=== PATIENT | female | born 1990 | race Caucasian/White ===

== ENCOUNTER 2023-05-26 10:48 | Outpatient (OUT) | payer OTHER, SELFPAY ==
--- NOTE | 2023-05-26 10:49 | US_ITS ---
[address] [address] Patient Name: SATHYA SAUNDERS MRN: [id number] date: 1990 Sex: F Assigned Patient Location: US Current Patient Location: Accession/Order Number: [id number] Exam Date: 05/26/2023 10:50 Report Date: 05/29/2023 15:33 At the request of: GUERDA LEMA Procedure: US OB transvaginal EXAMINATION: US OB transvaginal HISTORY: Missed Menses COMPARISON: No relevant comparison available. FINDINGS: GESTATIONAL SAC: Present and normal appearing. YOLK SAC: Absent. POLE: Present and normal appearing. CARDIAC: 163 bpm UTERUS: Normal size and appearance. OVARIES: Right: Normal. Left: Normal. CERVIX: 3.6 cm in length and closed. CUL-DE-SAC: Normal. OTHER: None. AGE BY LMP: Unknown LMP ZAFAR BY LMP: AGE BY US CRL: 12 weeks 6 days ZAFAR BY US CRL: 12/02/2023 US/US OB transvaginal IMPRESSION: 1. Single live intrauterine 12 weeks 6 days by today's ultrasound. Electronically authenticated by: ENOCH HORAN Date: 05/29/2023 15:33
== END 2023-05-26 10:49 | disposition home or self-care (01) ==
PROVIDERS: Visit Provider Obstetrics & Gynecology
DX: Z34.91 Encounter for supervision of normal pregnancy, unspecified, first trimester (principal); Z3A.12 12 weeks gestation of pregnancy
CPT/HCPCS: 76817

== ENCOUNTER 2023-06-20 20:16 | Outpatient (REF) | payer OTHER, SELFPAY ==
[2023-06-24 12:08] LABS: Age Gdln ACOG Testing Note (.); HPV Aptima Negative (Negative); IGP, Aptima HPV, rfx 16/18,45 Note (.)
== END 2023-06-20 20:17 | disposition home or self-care (01) ==
LOC: LAB 20:16
PROVIDERS: Visit Provider Obstetrics & Gynecology
DX: Z12.4 Encounter for screening for malignant neoplasm of cervix (principal)
CPT/HCPCS: G0145

== ENCOUNTER 2023-07-25 13:02 | Outpatient (OUT) | payer OTHER, SELFPAY ==
--- NOTE | 2023-07-25 13:04 | US_ITS ---
[address] [address] Patient Name: SATHYA SAUNDERS MRN: [id number] date: 1990 Sex: F Assigned Patient Location: US Current Patient Location: Accession/Order Number: [id number] Exam Date: 07/25/2023 13:05 Report Date: 07/25/2023 15:14 At the request of: GUERDA LEMA Procedure: US OB anatomy EXAMINATION: US OB anatomy HISTORY: ANAOTMY COMPARISON: No relevant comparison available. TECHNIQUE: Transabdominal sonographic examination was performed for obstetrical and evaluation. FINDINGS: Number: 1 Heart Rate: 155.0 bpm H.B. /min Amniotic Fluid Volume: Subjectively normal position: Cephalic presentation, longitudinal lie Placental Location: Anterior. Placental edge 2.6 cm from the internal os. Grade 0 Cervix Length: 3.5 cm , closed Normal anatomy: Lateral ventricles, cerebellum, posterior fossa, orbits, four-chamber heart, diaphragm, stomach, kidneys, abdominal cord insertion, bladder, umbilical arteries, three-vessel cord, spine, extremities Nonvisualization: Nose, lips, RVOT, LVOT BIOMETRY: BPD: 4.6 cm 19 weeks 6 days F 15% HC: 17.7 cm 20 weeks 1 days, 15% AC: 15.5 cm 20 weeks 5 days, 38% FL: 3.5 cm 21 weeks 0 days, 44% EFW:372.5 grams; 13 ounces, 37% FL/AC: 22.3 FL/BPD: 75.4 HC/AC: 1.1 GESTATIONAL AGE: Age by EDC: 20 weeks 6 days ZAFAR by EDC: 12/06/2023 Age by current US: 20 weeks 3 days ZAFAR by current US: 12/09/2023 US/US OB anatomy IMPRESSION: Nonvisualization of the nose, lips, RVOT, LVOT Low lying placenta *Reference: [employer] Practice Guideline for the performance of Obstetric Ultrasound Examinations, July 09, 2007. Electronically authenticated by: PURNIMA NEGRON Date: 07/25/2023 15:14
--- NOTE | 2023-07-25 13:04 | US_ITS ---
[address] [address] Patient Name: SATHYA SAUNDERS MRN: [id number] date: 1990 Sex: F Assigned Patient Location: US Current Patient Location: Accession/Order Number: [id number] Exam Date: 07/25/2023 13:05 Report Date: 07/25/2023 15:14 At the request of: GUERDA LEMA Procedure: US OB cervical length EXAMINATION: US OB anatomy HISTORY: ANAOTMY COMPARISON: No relevant comparison available. TECHNIQUE: Transabdominal sonographic examination was performed for obstetrical and evaluation. FINDINGS: Number: 1 Heart Rate: 155.0 bpm H.B. /min Amniotic Fluid Volume: Subjectively normal position: Cephalic presentation, longitudinal lie Placental Location: Anterior. Placental edge 2.6 cm from the internal os. Grade 0 Cervix Length: 3.5 cm , closed Normal anatomy: Lateral ventricles, cerebellum, posterior fossa, orbits, four-chamber heart, diaphragm, stomach, kidneys, abdominal cord insertion, bladder, umbilical arteries, three-vessel cord, spine, extremities Nonvisualization: Nose, lips, RVOT, LVOT BIOMETRY: BPD: 4.6 cm 19 weeks 6 days F 15% HC: 17.7 cm 20 weeks 1 days, 15% AC: 15.5 cm 20 weeks 5 days, 38% FL: 3.5 cm 21 weeks 0 days, 44% EFW:372.5 grams; 13 ounces, 37% FL/AC: 22.3 FL/BPD: 75.4 HC/AC: 1.1 GESTATIONAL AGE: Age by EDC: 20 weeks 6 days ZAFAR by EDC: 12/06/2023 Age by current US: 20 weeks 3 days ZAFAR by current US: 12/09/2023 US/US OB cervical length IMPRESSION: Nonvisualization of the nose, lips, RVOT, LVOT Low lying placenta *Reference: [employer] Practice Guideline for the performance of Obstetric Ultrasound Examinations, July 09, 2007. Electronically authenticated by: PURNIMA NEGRON Date: 07/25/2023 15:14
== END 2023-07-25 13:03 | disposition home or self-care (01) ==
LOC: US 13:02
PROVIDERS: Visit Provider Obstetrics & Gynecology
DX: O44.42 Low lying placenta NOS or without hemorrhage, second trimester (principal); Z3A.20 20 weeks gestation of pregnancy
CPT/HCPCS: 76805; 76817

== ENCOUNTER 2023-08-18 08:34 | Outpatient (OUT) | payer OTHER, SELFPAY ==
[2023-08-18 10:11] LABS: Glucose 1 Hour 129 mg/dL
[2023-08-18 10:18] LABS: Basophils Percent Auto 0.3 % (0.2-2.0); Eosinophils Absolute Auto 0.1 10^3/uL (0.0-0.7); Eosinophils Percent Auto 1.2 % (0.9-7.0); Hematocrit 37.1 % (36.0-48.0); Hemoglobin 12.2 g/dL (12.0-16.0); Immature Granulocytes Abs Auto 0.09 10^3/uL (0.00-0.03); Immature Granulocytes Pct Auto 0.9 % (0.0-0.5); Lymphocytes Absolute Auto 1.3 10^3/uL (1.2-3.8); Lymphocytes Percent Auto 12.8 % (20.5-60.0); Mean Corpuscular HGB Conc 32.9 g/dL (29.9-35.2); Mean Corpuscular Hemoglobin 29.4 pg (26.7-34.0); Mean Corpuscular Volume 89.4 fL (81.0-99.0); Mean Platelet Volume 11.3 fL (9.5-13.5); Monocytes Absolute Auto 0.6 10^3/uL (0.3-0.8); Monocytes Percent Auto 5.8 % (1.7-12.0); Neutrophils Absolute Auto 7.9 10^3/uL (1.4-6.5); Platelet Count 208 10^3/uL (150-450); Red Blood Count 4.15 10^6/uL (4.20-5.40); Red Cell Distribution Width 13.2 % (11.0-15.0)
== END 2023-08-18 08:35 | disposition home or self-care (01) ==
LOC: LAB 08:34
PROVIDERS: Visit Provider Obstetrics & Gynecology
DX: Z34.92 Encounter for supervision of normal pregnancy, unspecified, second trimester (principal)
CPT/HCPCS: 36415; 82950; 85025

== ENCOUNTER 2023-08-18 13:39 | Observation (INO) | payer OTHER, SELFPAY ==
[2023-08-18] VITALS (22 sets, daily range): BP systolic 150–190; BP diastolic 76–104; PULSE 72–89; TEMP 35.9–37
--- NOTE | 2023-08-18 14:41 | PC.NURSE ---
1345- Patient to unit with complaint of swelling within the last week and a half. States gets migraines prior to and has had 1 migraine this past week as well as a couple headaches - per patient gets auras with migraines. Patient denies taking medication for relief and headaches resolve on own. Swelling assessed and noted as non-pitting in BLE. Patient denies vision changes, headache, or epigastric pain at this time. DTRs assessed as +1 uppers and +2 lowers. History obtained from patient and denies any complications in . States she was diagnosed with hypothyroidism by fertility doctor and currently is taking Synthroid 75 mcg daily for treatment. 1420- Dr. Murphy called and notified of patient assessment and blood pressures obtained. Dr. Murphy orders to obtain P/C ratio of urine, CMP, and CBC. Keep patient bed rest and reassess blood pressure in an hour with manual cuff. 1425- Patient educated on plan of care. Denies CBC d/t having this drawn this morning here at the hospital. Okay with CMP and urine to be obtained.
[2023-08-18 15:07] LABS: Alanine Aminotransferase 19 U/L (14-59); Albumin Globulin Ratio 0.8; Albumin Level 2.8 g/dL (3.4-5.0); Alkaline Phosphatase 55 U/L (46-116); Anion Gap 11.2; Aspartate Amino Transferase 12 U/L (15-37); BUN Creatinine Ratio 8.8; Bilirubin Total 0.3 mg/dL (0.2-1.0); Calcium 8.8 mg/dL (8.5-10.1); Carbon Dioxide 28.2 mmol/L (21.0-32.0); Chloride 104 mmol/L (98-107); Estimated GFR (African America >60 (>=60); Estimated GFR (Non-African Ame >60 (>=60); Globulin 3.5 g/dL; Glucose 82 mg/dL (74-106); Potassium 3.4 mmol/L (3.5-5.1); Sodium 140 mmol/L (136-145); Total Protein 6.3 g/dL (6.4-8.2)
[2023-08-18 15:15] LABS: Creatinine Urine Random 18.19 mg/dL (20.00-300.00); Protein Creatinine Ratio Urine 0.33; Total Protein Urine Random <6.0 mg/dL (<=11.9)
[2023-08-18] MEDS: LABETALOL HCL 100 MG TABLET PO (15:42)
[2023-08-18] MEDS: HYDRALAZINE HCL 10 MG TABLET PO (17:43)
[2023-08-18] MEDS: LABETALOL HCL 100 MG/20 ML MDV IVP (18:52)
[2023-08-18] MEDS: LACTATED RINGER'S SOLUTION 1,000 ML 125 ML IV (18:53)
[2023-08-18] MEDS: LABETALOL HCL 100 MG/20 ML MDV 20 MG IVP (19:21)
[2023-08-18] MEDS: MAGNESIUM SULFATE IN WATER 4 GM/100 ML PIGGYBACK IV (19:50)
[2023-08-18] MEDS: 0.9 % SODIUM CHLORIDE 1,000 ML 75 ML IV (19:50)
[2023-08-18] MEDS: MAGNESIUM SULFATE IN WATER 40 GM/1,000 ML IV.SOLN IV (20:13)
[2023-08-18] MEDS: BETAMETHASONE ACE/BETAMETHASONE SOD PHOS 30 MG/5 ML 12 MG IM (20:35)
[2023-08-18] MEDS: NIFEdipine 30 MG TAB.ER.24 60 MG PO (20:40)
--- NOTE | 2023-08-19 11:57 | PM.OBPN ---
OB - PN: Subj Subjective Interval history: PATIENT PRESENTED TO [facility] WITH COMPLAINT OF HEADACHE, (NOT WORSE HEADACHE OF HER LIFE) AND NEW ONSET ANKLE EDEMA. BLOOD PRESSURE ON TRIAGE HIGH 190/100'S DENIED VISUAL CHANGES, CHEST PAIN, RUQ PAIN, OR DIZZINESS. UNABLE TO OBTAIN RECORDS FROM DR. LEMA'S OFFICE. GOOD HISTORIAN. DENIES ANY MEDICAL PROBLEM EXCEPT HYPOTHYROIDISM WELL CONTROLLED WITH MEDICATION. 32 YEARS OLD. . 25 WEEKS 4 DAYS. BABY MOVING. MEMBRANES INTACT. NO CONTRACTIONS. NO BLEEDING Exam Constitutional Vital Signs, click to edit/add: Last Vital Signs Temp 98.4 F 08/18/23 20:48 Pulse 78 08/18/23 20:46 BP 162/77 H 08/18/23 20:46 Documenting provider has reviewed patient's vital signs: yes Common normals: no apparent distress, oriented x3, healthy appearing and alert General appearance: cooperative and comfortable HENMT Common normals: normocephalic and head/scalp atraumatic Eye Pupil: PERRL and accommodation reflex normal Neck & C-Spine Common normals: full ROM Respiratory Common normals: normal respiratory effort Cardio Common normals: regular rate and regular rhythm GI Common normals: Normal to inspection, nondistended, normoactive bowel sounds present Common normals: no CVA tenderness Extremity Common normals: normal to inspection, full ROM and no calf tenderness Other: NEW ONSET DEPENDENT EDEMA, NON PITTING, REFLEXES ONE PLUS, NO CLONUS Neuro Common normals: CN's II-XII intact bilaterally, moves all extremities, no focal motor deficits and no sensory deficits noted Psych Common normals: mental status grossly normal, thought process normal, cooperative and affect normal Results Labs Labs: BMP 08/18/23 14:50 Sodium 140 Potassium 3.4 L Chloride 104 Carbon Dioxide 28.2 BUN 5.0 L Creatinine 0.57 Glucose 82 Calcium 8.8 Liver Function 08/18/23 Range/Units 14:50 Total Bilirubin 0.3 (0.2-1.0) mg/dL AST 12 L (15-37) U/L ALT 19 (14-59) U/L Alkaline Phosphatase 55 (46-116) U/L Albumin 2.8 L (3.4-5.0) g/dL Additional Findings Additional findings: LFT'S NORMAL, PLATELETS NORMAL, NOT HEMOCONCENTRATED, P:C RATION GREATER THAN 0.3, BLOOD PRESSURES HIGH RANGING FROM 160'S TO 190'S OVER 80'S TO 100'S. HAVE ADMINISTERED LABETALOL TWO DOSES 100 MG TAB PO, HYDRALAZINE 10 MG PO, TRANDATE IV 5 MG THEN 20 MG THEN 40 MG. BLOOD PRESSURE REFRACTORY TO ANTIHYPERTENSIOVE. FHT CAT I AND NO CONTRACTIONS. STARTED MAGNESIUM FOR SEIZURE PROHYLAXIS WITH 4 GRAM BOLUS FOLLOWED BY 2 GRAMS PER HOUR DRIP. CALLED [facility] IN [place] AND DISCUSSED CASE WITH HIM. ADVISED TO GIVE NIFEDIPINE 60 MG XL BY MOUTH AND TRANSPORT BY AIR TO [place] FOR FURTHER ASSESSMENT AND CARE. THIS DECISION BASED ON POSSIBILITY OF DELIVERY FOR PREECLAMPSIA WITH SEVERE FEATURES RERFRACTORY TO ANTIHYPERTENSIVES. ONE DOSE OF BETAMETHASONE GIVEN IV. EXPLAINED THE PROBABLE CAUSE OF HYPERTENSION AND REASON PATIENT NEEDED TO BE TRANSFERRED TO A FACILITY WHICH HAS A NICU INCASE THE BABY NEEDS TO BE DELIVERED EARLY FOR MATERNAL INDICATIONS. EXPLAINED PATIENT WOULD BE TRANSPORTED BY AIR TO [facility] IN [place]. WOULD TRAVEL THERE IN CAR. THE APPROPRIATE PAPER WORK FOR THANSFER TO A TERTIARY CARE FACILITY WAS COMPLETED AND THE CONSENT FORM WAS SIGNED BY PATIENT. NURSES PROVIDED REPORT TO THE [facility] AT [facility]. THE FLIGHT TEAM ARRIVED AND SECURED THE PATIENT FOR TRANSPORT WITHOUT COMPLICATION. THEY WERE FULLY APPRAISED OF MEDICAL CONDITION AND INTERVENTIONS GIVEN THUS FAR. ALL QUESTIONS FROM PATIENT AND HER WERE ANSWERED WITH STATED UNDERSTANDING. OB - PN: A/P Assessment and Plan (1) Pre-eclampsia, severe: Assessment and Plan: CLINICALLY STABLE BUT HYPERTENSION REFRACTORY TO LABETALOL PO AND IV. ALSO REFRACTORY TO HYDRALAZINE. MAGNESIUM STARTED SEIZURE PROPHYLAXIS. PER DIRECTION OF [facility] AT [facility] NIFEDIPINE 60 MG XR GIVEN AND PATIENT TRANSPORTED BY AIR TO [facility] WITH NICU IN THE EVENT THAT DELIVERY BE NEEDED FOR MATERNAL INDICATIONS. FIRST DOSE OF BETAMETHASONE GIVEN PRIOR TO DEPARTURE. Plan TRANSPORT PATIENT WITH PREECLAMPSIA WITH SEVERE FEATURE AT 25 WEEKS AND 4 DAYS TO TERTIARY CARE FACILITY: [facility], BY [facility] [place] DOES NOT HAVE A NICU SHOULD THIS PATIENT REQUIRE DELIVERY FOR MATERNAL INDICATIONS. Time Spent with Patient Time: Total time spent is greater than 50% in coordination of care (as documented) at patient's floor/unit and/or counseling patient: Total time spent with greater than 50% in coordination of care (as documented) at patient's floor/unit and/or counseling patient: greater than 35 minutes
== END 2023-08-18 21:15 | disposition short-term general hospital (02) ==
PROVIDERS: Admitting Provider Obstetrics & Gynecology; Visit Provider Obstetrics & Gynecology
DX: O14.12 Severe pre-eclampsia, second trimester (principal); Z3A.25 25 weeks gestation of pregnancy
CPT/HCPCS: 36415; 59025; 80053; 82570; 82950; 84156; 85025; 96372; 96374; 96375; G0378; G0379; J0702

== ENCOUNTER 2024-10-31 18:51 | Outpatient (REF) | payer OTHER, BC, SELFPAY ==
--- OUTSIDE RECORDS SUMMARY | 2024-10-31 18:57 | XMS_ITS | CCD ---
Author Organization [facility] Care Team Providers Care Supervisor Grinding Name Role Phone PEPPER CONNORS Attending Unavailabl e Unavailable Primary Care Provider Unavailabl e No, Physician Primary Care Provider Unavailabl e ULYSSES, EDYTA LUNDBERG Primary Care Unavailab EDYTA Green Admitting Unavailab katie Villalba MD, Edyta Lundberg Primary Care Provider Ulysses MUHAMMAD, Edyta Lundberg Primary Care Provider NANCY CISSE Attending Unavail able ULYSSES, EDYTA LUNDBERG Primary Care Unavailab katie VILLALBA, EDYTA LUNDBERG Primary Care Unavailab NANCY Cardenas Attending Unavail able PROVIDER, UNKNOWN Attending Unavailable PROVIDER, UNKNOWN Admitting Unavailable Unavailable Primary Care Provider Unavailabl e Juan Antonio LEMA R Attending Unavailable PITA, Juan Antonio R Admitting Unavailable Juan Antonio LEMA R Attending Unavailable PITA, Juan Antonio R Admitting Unavailable Kun Uribe Attending Unavailable STEPHANIE MENDOZA Referring Unavailable EDGARIN, STEPHANIE Lao Referring Unavailable KYAW RAMIREZ Referring Unavailable BEL MCKINNON Referring Unavailable TRAUTWEINSTEPHANIE Referring Unavailable TRAUTWEINSTEPHANIE Referring Unavailable REGUEYRAARNEL Referring Unavailable Medications Current Medications Medication Drug Class(es) Dates Sig (Normalized) Sig (Original) docusate sodium 100 mg oral capsule (20 sources) Start: 09-06-2023 take 1 capsule by mouth in the morning, then take 1 capsule by mouth at bedtime docusate sodium (COLACE) 100 mg capsule Take 1 capsule (100 mg total) by mouth in the morning and 1 capsule (100 mg total) before bedtime. 60 capsule 0 09/06/2023 Active ferrous sulfate 325 mg oral tablet (20 sources) Start: 09-06-2023 take 1 tablet by mouth in the morning, then take 1 tablet by mouth at mealtime ferrous sulfate 325 (65 FE) mg tablet Take 1 tablet (325 mg total) by mouth in the morning and 1 tablet (325 mg total) in the evening. Take with meals. 60 tablet 1 09/06/2023 Active hydrALAZINE hydrochloride 25 mg oral tablet (20 sources) Arteriolar Vasodilator Start: 09-28-2023 take 1 tablet by mouth every eight hours hydrALAZINE (APRESOLINE) 25 mg tablet Take 1 tablet (25 mg total) by mouth every 8 (eight) hours. 120 tablet 0 09/28/2023 Active ibuprofen 800 mg oral tablet (20 sources) Nonsteroidal Anti-inflammatory Drug Start: 09-06-2023 take 1 tablet by mouth every eight hours ibuprofen (MOTRIN) 800 mg tablet Take 1 tablet (800 mg total) by mouth every 8 (eight) hours. 60 tablet 0 09/06/2023 Active levothyroxine sodium 0.075 mg oral tablet (20 sources) l-Thyroxine Start: 09-08-2023 take 1 tablet by mouth in the morning levothyroxine (SYNTHROID, LEVOTHROID) 75 MCG tablet Indications: Hypothyroidism, unspecified type Take 1 tablet (75 mcg total) by mouth in the morning. 30 tablet 2 09/08/2023 Active NIFEdipine 60 mg osmotic 24 hr extended release oral tablet (20 sources) Dihydropyridine Calcium Channel May Start: 09-28-2023 take 1 tablet by mouth every hour NIFEdipine XL (PROCARDIA XL) 60 mg 24 hr tablet Take 1 tablet (60 mg total) by mouth every 12 (twelve) hours. 60 tablet 0 09/28/2023 Active no115/iron/folic acid ( 19 ORAL) (20 sources) no115/iron/folic acid ( 19 ORAL) Take by mouth. 0 Active SUMAtriptan 50 mg oral tablet (3 sources) Serotonin-1b and Serotonin-1d Receptor Agonist take 1 tablet by mouth every two hours as needed SUMAtriptan (IMITREX) 50 MG tablet Take 1 (one) tablet (50 mg total) by mouth every 2 (two) hours as needed for migraine Max of 200 mg in 24hrs . 0 Active Completed/Discontinued Medications Medication Drug Class(es) Dates Sig (Normalized) Sig (Original) levonorgestrel 0.902579 mg/hr intrauterine system (2 sources) Progestin, Progestin-containi ng Intrauterine Device Start: 10-13-2023 End: 10-13-2023 levonorgestreL (KYLEENA) 17.5 mcg/24 hrs (5 yrs) 19.5 mg IUD 1 each Start: 10-13-2023 End: 10-13-2023 levonorgestreL (KYLEENA) 17. 5 mcg/24 hrs (5 yrs) 19.5 mg IUD 1 each Problems Active Problems Problem Classification Problem Date Documented Da te Episodic/Chronic Contraceptive and procreative management (3 sources) Patient encounter status; Translations: [Encounter for other general counseling and advice on procreation] Episodic Hypertension complicating ; childbirth and the puerperium (2 sources) Hypertensive disorder; Translations: [Unspecified maternal hypertension, complicating the puerperium] Onset: 10-06-2023 10-06-2023 Chronic Other female genital disorders (1 source) Abnormal uterine bleeding; Translations: [Abnormal uterine and vaginal bleeding, unspecified] Chronic Other nutritional; endocrine; and metabolic disorders (1 source) Body mass index 30+ - obesity; Translations: [Body mass index (BMI) 37.0-37.9, adult] Chronic Other nutritional; endocrine; and metabolic disorders (1 source) Obesity; Translations: [Other obesity due to excess calories] Chronic Other and delivery including normal (1 source) care status; Translations: [Encounter for routine follow-up] 10-13-2023 Episodic Other screening for suspected conditions (not mental disorders or infectious disease) (1 source) Cancer cervix screening status; Translations: [Encounter for screening for malignant neoplasm of cervix] Episodic Residual codes; unclassified (1 source) Family history of carrier of genetic disease; Translations: [Family history of carrier of genetic disease] Onset: 04-02-2024 Episodic Thyroid disorders (1 source) Hypothyroidism, unspecified; Translations: [Hypothyroidism, unspecified] Onset: 09-28-2023 Chronic Unclassified (1 source) Procedure Onset: 10-13-2023 Past or Other Problems Problem Classification Problem Date Documented Da te Episodic/Chronic Hypertension complicating ; childbirth and the puerperium (20 sources) Severe pre-eclampsia; Translations: [Severe pre-eclampsia, unspecified trimester] Onset: 08-18-2023 08-18-2023 Episodic Unclassified (1 source) Annual Exam Onset: 09-07-2022 Results Test Name Value Interpretation Reference Range Facility XR Ankle 3+ Views Righton XR Ankle 3+ Views Right Exam Date/Time: 05/09/2024 17:33 EDT Reason for Exam: Pain Report IMPRESSION: NO ACUTE OSSEOUS ABNORMALITY. EXAM: XR Ankle 3+ Views Right COMPARISON: None available HISTORY: Ankle pain FINDINGS: AP, lateral and oblique views of the ankle were obtained. FINDINGS: No acute fracture or dislocation. Ankle mortise is within normal limits. Talar dome is intact. Small plantar calcaneal enthesophyte. Soft tissue edema of the ankle. Ordering Provider: Reese Kenny FINAL REPORT Dictated: 05/10/2024 8:26 am Gurwinder Maldonado DO Signed (Electronic Signature): 05/10/2024 8:26 am Signed by: Gurwinder Maldonado DO Transcribed by: WALE Technologist: QUINTON Technical Comments Radiation Dose: Ka,r in mGy = na DAP = na Normal [facility] ED Clinical Summaryon 2023 ED Clinical Summary ED Clinical Summary [place] [id number] ED Clinical Summary Person Information Name: SUMMER SAUNDERS Wendi/[facility] Age: 33 Years : 1990 Sex: Female Language: Serbian PCP: Tosha Brown CNP Marital Status: Phone: [phone] Visit Id: Visit Reason: Ankle injury - Minor; ANKLE PAIN/SWELLING Speciality: Acuity: 4 Enc Type: Emergency Med Service: Emergency Arrival: 05/09/2024 16:44:34 Discharge: 05/09/2024 18:23:08 LOS: 000 01:39 Checkin: 05/09/2024 16:44:34 Checkout: 05/09/2024 18:23:08 Dispo Type: Home (Routine DC) EVENTS: Event Name Event Status Request Date/Time Start Date/Time Complete Date/Time Arrive Complete 05/09/2024 16:44:34 05/09/2024 16:44:34 05/09/2024 16:44:34 Document Home Meds Request 05/09/2024 16:44:34 Triage Complete 05/09/2024 16:44:34 05/09/2024 17:20:38 05/09/2024 17:20:38 Registration Complete 05/09/2024 16:55:21 05/09/2024 16:55:21 05/09/2024 16:55:21 Reg Complete Request 05/09/2024 16:55:21 Reg Bed Request Complete 05/09/2024 16:55:21 05/09/2024 16:55:21 05/09/2024 16:55:21 Bed Assign Complete 05/09/2024 17:16:40 05/09/2024 17:16:40 05/09/2024 17:16:40 Dr Exam Complete 05/09/2024 17:16:40 05/09/2024 17:43:41 05/09/2024 17:43:41 RN Exam Complete 05/09/2024 17:16:40 05/09/2024 17:47:38 05/09/2024 17:47:38 X-Ray Complete 05/09/2024 17:22:44 05/09/2024 17:24:00 05/09/2024 17:33:23 Wet Read Request 05/09/2024 17:33:23 Registration Request 05/09/2024 17:43:41 Dr Exam Complete 05/09/2024 17:51:13 05/09/2024 17:51:13 05/09/2024 17:51:13 Discharge Complete 05/09/2024 17:57:51 05/09/2024 18:23:15 05/09/2024 18:23:15 Patient Care Request 05/09/2024 17:58:07 Transfer Complete 05/09/2024 18:23:15 05/09/2024 18:23:15 05/09/2024 18:23:15 ADDRESS: [address] [place] [address] [facility] [phone] PHYS DOC NOTES: MEDICAL INFORMATION: Prescriptions Given: Medications to Continue with No Changes Other Medications levonorgestrel (Kyleena 19.5 mg intrauterine device) Intrauteral Once. PATIENT EDUCATION INFORMATION: Instructions: How to Use a Stirrup Ankle Brace; Ankle Sprain Follow up: With: Address: When: Tosha Pathak Tyshawn Balderrama, Skylar C, [facility] [address] [place] [address] [phone] Business (1) In 3 days 05/12/2024 DIAGNOSIS: Sprain of ankle Normal [facility] ED Note-Physicianon 05-09-20 ED Note-Physician ED Note-Physician Basic Information Time Seen: Reese Kenny PA-C 05/09/2024 17:43 Chief Complaint rolled right ankle. History of Present Illness 33-year-old female comes to the ED for evaluation of an ankle injury. The patient rolled her ankle couple of days ago. She presents complaining of pain about the lateral aspect. She is able to bear weight, but this does worsen her discomfort. No other area of injury or concern. No prior treatments. Review of Systems A 10 point review of systems is negative except as noted above. Medical and Surgical History: Reviewed and noted Social history: Lives at home Tobacco: Denies Physical Exam Vitals & Measurements T: 37 ?C(Oral) HR: 78(Peripheral) RR: 18 BP: 140/99 SpO2: 99% HT: 165.1 cm WT: 97 kg BMI: 35.59 Nurses notes and vital signs reviewed and patient is not hypoxic. General: The patient appears well, resting comfortably. Skin: Warm, dry. Head: Atraumatic. Neck: No JVD. Eye: Normal conjunctiva. Ears, Nose, Mouth, and Throat: Moist mucous membranes. Cardiovascular: Strong distal pulses. Chest wall: Respiratory: Respirations are nonlabored. Back: Normal range of motion. Musculoskeletal: Tenderness and swelling of the lateral aspect of the right ankle. No ecchymosis or erythema. No joint laxity. No tenderness of the foot. Strong pedal pulses. No calf tenderness. No tenderness to proximal tibia/fibula Gastrointestinal: Urological: Neurological: Awake and alert. No focal deficits. Follows commands. Psychiatric: Cooperative. Medical Decision Making X-rays show no evidence of fracture or dislocation. The diagnostic limitation of x-rays were discussed. It was explained that follow-up imaging may be necessary, and PCP follow-up was given. Patient is educated to RICE therapy. Patient was encouraged to return to the ED if symptoms worsen or change. Splinting procedure Patient was placed in Duncan wrap and Air-Stirrup splint by nursing staff. Remains neurovascular intact. Assessment/Plan Sprain of ankle (S93.409A: Sprain of unspecified ligament of unspecified ankle, initial encounter) Orders: Duncan Wrap Air Cast XR Ankle 3+ Views Right Disposition Plan Patient Discharge Condition Disposition: Discharged home Condition: Improved and stable Counseled: Patient and/or family were counseled to workup, results, treatment plan and follow-up recommendations Discharge Prescription List Prescriptions No active prescription medications Follow-up With When Contact Information Tosha Brown In 3 days 05/12/2024 EDT [address], [address] [place] [address]- [phone] Business (1) Additional Instructions: Patient Education How to Use a Stirrup Ankle Brace Ankle Sprain Attestation I performed a substantive part of the MDM during the patient?s E/M visit. I personally made or approved the documented management plan and acknowledge its risk of complications. (Independent Interpretation) My (EKG/X-Ray/US/CT) interpretation as above. (Discussion) Management/test interpretation discussed with APC. This report was transcribed using voice recognition software. Every effort was made to ensure accuracy, however, inadvertently computerized healthcare administration intern mistakes may be present. Appropriate healthcare PPE was used in evaluating this patient. Problem List/Past Medical History Ongoing IUD check up Smoker Historical Migraine Smoker Procedure/Surgical History Extraction of wisdom tooth. Medications Inpatient No active inpatient medications Home Kyleena 19.5 mg intrauterine device, IntraUteral, Once Allergies No Known Allergies Social History Alcohol - Denies Alcohol Use, 02/16/2017 1-2 times per month, 12/26/2022 Sexual Sexually active: Yes., 06/25/2019 Substance Abuse - Denies Substance Abuse, 02/16/2017 Tobacco - No Risk, 07/27/2020 5-9 cigarettes (between 1/4 to 1/2 pack)/day in last 30 days Tobacco Use:., 12/26/2022 only when she drinks once a month Tobacco Use:., 07/27/2020 Former smoker, quit more than 30 days ago Tobacco Use:. Never Smokeless Tobacco Use:. Ready to change: No. Household tobacco concerns: No., 09/02/2019 Cigarettes, 02/16/2017 Family History Family history is negative Lab Results No qualifying data available. Diagnostic Results XR Ankle 3+ Views Right * Preliminary * 05/09/24 17:43:54 NEGATIVE: No fracture, dislocation or other acute abnormality Read By: Reese Kenny PA-C Normal [facility] Comment on above: Result Comment: Elec tronically Signed By: Reese Kenny PA-C\.br\Date and Time Signed: 05/09/24 18:03 EDT\.br\Electronically Co-Signed By: Kun Uribe M.D.\.br\Date and Time Co-Signed: 05/09/24 18:29 EDT ED Patient Summaryon 024 ED Patient Summary ED Patient Summary [place] [id number] Patient Discharge Instructions Person Information Name: SUMMER SAUNDERS Age: 33 Years Arrival Date: 05/09/2024 16:44:34 Discharge Diagnosis: Sprain of ankle Primary Care Physician: Tosha Brown CNP Provider Information Primary Provider: Kun Uribe M.D. Advanced Threading Machine Tender:Reese Kenny PA-C The exam and treatment you received in the Emergency Department were for an urgent problem and are not intended as complete care. It is important that you follow up with a doctor, nurse practitioner, or physician?s management assistant for ongoing care. If your symptoms become worse or you do not improve as expected and you are unable to reach your usual health care provider, you should return to the Emergency Department. We are available 24 hours a day. SUMMER SAUNDERS has been given the following list of patient education materials, prescriptions and follow-up instructions: Follow-up Instructions: With: Address: When: Tosha Brown [address] [place] [address] [facility], [place] [address] [phone] Business (1) In 3 days 05/12/2024 In the event that this physician does not participate in your insurance network, please consult with your insurance company to find a nearby participating provider. Patient Education Materials: How to Use a Stirrup Ankle Brace; Ankle Sprain A MESSAGE TO ALL PATIENTS REGARDING OPIOIDS PRESCRIPTION OPIOIDS: WHAT YOU NEED TO KNOW Prescription opioids can be used to help relieve lrkmcknj-eu-ddpsyl pain and are often prescribed following a surgery or injury, or for certain health conditions. These medications can be an important part of the treatment but also come with serious risks. It is important to work with your healthcare provider to make sure you are getting the safest, most effective care. WHAT ARE THE RISKS AND SIDE EFFECTS OF OPIOID USE? Prescription opioids carry serious risks of addiction and overdose, especially with prolonged use. An opioid overdose, often marked by slowed breathing, can cause sudden . The use of prescription opioids can have a number of side effects as well, even when taken as directed: ? Tolerance?meaning you might need to take more of the medication for the same pain relief ? Physical dependence?meaning you have symptoms of withdrawal when a medication is stopped ? Increased sensitivity to pain ? Constipation ? Nausea, vomiting, and dry mouth ? Sleepiness and dizziness ? Confusion ? Depression ? Low levels of testosterone that can result in lower sex drive, energy, and strength ? Itching and sweating RISKS ARE GREATER WITH: ? History of drug misuse, substance use disorder, or overdose ? Mental health conditions (such as depression or anxiety) ? Sleep apnea ? Older age (65 years and older) ? Avoid alcohol while taking prescription opioids. Also, unless specifically advised by your health care provider, medications to avoid include: ? Benzodiazepines (such as Xanax or Valium) ? Muscle relaxants (such as Soma or Flexeril) ? Hypnotics (such as Ambien or Lunesta) ? Other prescription opioids KNOW YOUR OPTIONS Talk to your health care provider about ways to manage your pain that don?t involve prescription opioids. Some of these options may actually work better and have fewer risks and side effects. Options may include: ? Pain relievers such as acetaminophen, ibuprofen, and naproxen ? Some medication that are also used for depression or seizures ? Physical therapy and exercise ? Cognitive behavioral therapy, a psychological, goal-directed approach, in which patients learn how to modify physical, behavioral, and emotional triggers of pain and stress. IF YOU ARE PRESCRIBED OPIOIDS FOR PAIN: ? Never take opioids in greater amounts or more often than prescribed. ? Follow up with your primary health care provider. o Work together to create a plan on how to manage your pain. o Talk about ways to help manage your pain that don?t involve prescription opioids. o Talk about any and all concerns and side effects. ? Help prevent misuse and abuse o Never sell or share prescription opioids. o Never use another person?s prescription opioids. ? Store prescription opioids in a secure place and out of reach of others (this may include visitors, children, friends, and family). ? Safely dispose of unused prescription opioids: Find your community drug take-back program or your pharmacy mail-back program, or flush them down the toilet, following guidance from the Food and Drug Administration (www.fda.gov/Drugs/R esourcesForYou). ? Visit www.cdc.gov/drugover dose to learn about the risks of opioids abuse and overdose. ? If you believe you may be struggling with addiction, tell your health care process manager and ask for guidance or call [facility]?Ciara Lilly (more content not included)... Normal [facility] Laboratory comment Daniel (Repo rt)on 04-02-2024 UNLISTED LAB TEST Sent to reference lab [facility] SEND OUT TESTon 04-02-2024 SENT TO [facility] SPECIMEN EDTA WHOLE BLOOD Normal [facility] TEST NAME: [facility] VARIANT TESTING FREE OF CHARGE [facility] TEST RESULT CANCELLED [facility] Comment on above: Result Comment: KIMBERLY PEREZ AT [facility], DOC WANTED CANCELLED DUE TO TEST NOT BEING FREE CHLAMYDIA/GC BY PCRon 2023 CHLAMYDIA/GC BY PCR SPECIMEN SOURCE CERVIX CHLAMYDIA DNA(PCR) Negative (qualifier value) Chlamydia trachomatis not detected by nucleic acid amplification. This does not exclude the possibility of infection because results are dependent on adequate specimen collection. GONORRHOEAE DNA(PCR) Negative (qualifier value) Neisseria gonorrhoeae not detected by nucleic acid amplification. This does not exclude the possibility of infection because results are dependent on adequate specimen collection. [facility] Comment on above: Performed By: #### C #### [facility] ([id number]) [address], [address] [place] [address] POCT , urineon Beta HCG ( test) Ql (U) Negative [facility] Internal Tableman Check Completed and Passed Yes [facility] THYROID PROFILEon 09-28-2023 Free T4 [Mass/Vol] 0.91 ng/dL Normal 0.61-1.60 [facility] Comment on above: Performed By: #### T HYR #### [facility] ([id number]) [address] [place] [address], [address] [place] [address] TSH 1.50 uIU/mL Normal 0.49-4.67 [facility] Comment on above: Performed By: #### T HYR #### [facility] ([id number]) [address] [place] [address], [address] [place] [address] Surgical Pathologyon 023 Surgical Pathology Normal [facility] Comment on above: Result Comment: [facility] [address] [place] [address] Surgical Pathology Consultation Patient Name:SUMMER SAUNDERSDOB:1990 (Age: 32)Gender:FTaken:09/02/2023Reported:10/03/2023hysician(s):Yesi Tapia DO ([phone])Copy To:Alfred Molina [facility] Hospitalession #:[id number]. Rec. #:[id number]: #[id number] Final Pathologic Diagnosis Placenta: Second trimester placenta. Three vessel umbilical cord. Mike-Christiano changes. Report Electronically Signed Out cjb/3Candie Silveira MD Interpretation performed at [facility], [address] [place] [address], License number: [id number]. Clinical History Pre-eclampsia, severe, severe preeclampsia d/t BP, plt, 26 wks. Gross Description Received in formalin labeled CHIP placenta : Single MEMBRANES: Placenta Sac Rupture (cm from margin): Indeterminable Color: Adamson-brown Other Characteristics: No Insertion Site: 100% marginal CORD: Appearance: Unremarkable Site of Insertion: Marginal Length & Diameter (cm): 9.0 x 1.0 cm True Knots: No Number of vessels: Three GENERAL: Trimmed Weight (grams): 115 g Complete: Yes Size 1 x Size 2 x Size 3 (cm): 12.0 x 8.5 x 2.0 cm Accessory Lobe(s): No PLACENTAL DISK: Color of Surface: Blue-boykin Sub-amniotic Cyst: No Amnion Nodosum: No Subchorionic Fibrin: No Appearance of Cut Surface: Dark red-brown and spongy with a adamson-red rubbery area at the periphery, 0.4 cm Maternal floor: Unremarkable Retroplacental hematoma: No Cassettes: A Rolled membrane, two sections of cord B-D Rubber Washer sections of placenta E Additional membrane roll (5, ss, [id number]) [facility]/09/15/2023R Specimen(s) Received Placenta Fee Codes(s): 1; 69120 AFP Maternalon 07-12-2023 AFP [Mass/Vol] 40.8 ng/mL Invalid Interpretation Code [facility] Comment on above: Performed By: #### 1 [id number] #### [facility] [address] [place] [address] AFP [MoM] 1.13 Invalid Interpretation Code [facility] Comment on above: Performed By: #### 1 [id number] #### [facility] [address] [place] [address] AFP Comment Comment Invalid Interpretation Code [facility] Comment on above: Result Comment: Robbi Ayon, Ph.D., [facility] Director References: Available Upon Request. Multiples Of Median Cutoffs For AFP Elevations Cadena 2.5 Black 2.8 IDD 2.0 Twins 4.5 Abbreviation Definitions IDD - Insulin Dep Diabetes OSBR - Open Spina Bifida Risk For further inquiries contact [facility] at [phone]. This test was developed and its performance characteristics determined by [employer]. It has not been cleared or approved by the Food and Drug Administration. Performed at: [facility] [address] [facility], [place] [id number] [facility] Herlinda Little Performed By: #### 1 [id number] #### [facility] [address] [place] [address] AFP interpretation [Interp] Negative Invalid Interpretation Code [facility] Comment on above: Performed By: #### 1 [id number], [id number] #### [facility] [address] [place], [place] [address] AFP interpretation Daniel [Interp] Comment Invalid Interpretation Code [facility] Comment on above: Result Comment: Inte rpretation: Screen Negative This result is screen negative for OSB. The AFP MoM calculated is based on the gestational age provided. MS-AFP can identify up to 80% of open neural tube defects. Closed neural tube defects and some open defects may not be detected by this test. This test does not screen for Down Syndrome or Trisomy 18. If screening for Down Syndrome or Trisomy 18 is desired, contact [employer] to discuss available options. The [employer] recommends amniocentesis be offered to women age 35 and older. Performed By: #### 1 [id number], [id number] #### [facility] [address] [place] [address] AFP Maternal Report Invalid Interpretation Code [facility] Comment on above: Performed By: #### 1 [id number], [id number] #### [facility] [address] [place] [address] AGE.AT DELIVERY:TIME:PT: 31.1 Invalid Interpretation Code [facility] Comment on above: Performed By: #### 1 [id number], [id number] #### [facility] [address] [id number] GESTATIONAL AGE METHOD:PRID:PT: As provided Invalid Interpretation Code [facility] Comment on above: Result Comment: Reca lculations are not recommended when gestational dating by LMP and ultrasound are within 10 days. Performed By: #### 1 [id number], [id number] #### [facility] [address] [place] [address] GESTATIONAL AGE:TIME:PT: 18.3 week(s) Invalid Interpretation Code [facility] Comment on above: Performed By: #### 1 [id number], [id number] #### [facility] [address] [place] [address] INSULIN DEPENDENT DIABETES MELLITUS:PRTHR:PT: No Invalid Interpretation Code [facility] Comment on above: Performed By: #### 1 [id number], [id number] #### [facility] [address] [place] [address] MULTIPLE :FIND:PT: No Invalid Interpretation Code [facility] Comment on above: Performed By: #### 1 [id number], [id number] #### [facility] [address] [place] [address] NEURAL TUBE DEFECT RISK:LIKELIHOOD:PT: 8106 Invalid Interpretation Code [facility] Comment on above: Performed By: #### 1 [id number], [id number] #### [facility] [address] [place] [address] RACE:TYPE:PT: Invalid Interpretation Code [facility] Comment on above: Performed By: #### 1 [id number], [id number] #### [facility] [address] [place] [address] Consent for Treatmenton 06-10 Consent for Treatment [id number] #1.00CD:127 Normal [facility] Physician Orderon 07-07-2023 Physician Order [id number] 8#1.00CD:127 Normal [facility] TSHon 07-07-2023 TSH Qn 0.83 m[IU]/L Normal 0.34-5.60 [facility] Comment on above: Performed By: #### 1 [id number], [id number] #### [facility] [address] [place], [place] [id number] C Urineon 06-08-2023 Bacteria identified Cx Nom (U) Microbiology PROCEDURE: Urine Culture [R1] SOURCE: U CleanCatch BODY SITE: COLLECTED DATE/TIME: 06/06/2023 13:56 EDT RECEIVED DATE/TIME: 06/06/2023 15:38 EDT START DATE/TIME: 06/06/2023 15:38 EDT FREE TEXT SOURCE: Juan Antonio LEMA DO, DO, Corey R FINAL REPORTS Final Report [] Verified Date/Time: 06/08/2023 10:11 EDT <10,000 cfu/ml Mixed skin contaminants Performing Locations R1: This test was performed at: [facility], [address] [place] [address], [id number] , [place], Normal [facility] Comment on above: Performed By: #### 2 [id number] #### [facility] [address] [place] [address] Auto Diffon 06-06-2023 Basophils/100 WBC (Bld) 0.5 % Normal 0.0-2.0 [facility] Comment on above: Order Comment: Order Added by Discern Expert. Performed By: #### 1 [id number], [id number] #### [facility] [address] [place] [address] Basophils/Leukocyte s Auto (Bld) [Pure # fraction] 0.0 E9/L Normal 0.0-0.2 [facility] Comment on above: Order Comment: Order Added by Discern Expert. Performed By: #### 1 [id number], [id number] #### [facility] [address] [place] [address] Eosinophils/100 WBC (Bld) 1.1 % Normal 0.0-8.0 [facility] Comment on above: Order Comment: Order Added by Discern Expert. Performed By: #### 1 [id number], [id number] #### [facility] [address] [place] [address] Eosinophils/Leukocy esther Auto (Bld) [Pure # fraction] 0.1 E9/L Normal 0.0-0.5 [facility] Comment on above: Order Comment: Order Added by Discern Expert. Performed By: #### 1 [id number], [id number] #### [facility] [address] [place] [address] Lymphocytes/100 WBC (Bld) 15.5 % Normal 14.0-50.0 [facility] Comment on above: Order Comment: Order Added by Discern Expert. Performed By: #### 1 [id number], [id number] #### [facility] [address] [place] [address] Lymphocytes/Leukocy esther Auto (Bld) [Pure # fraction] 1.5 E9/L Normal 1.0-4.0 [facility] Comment on above: Order Comment: Order Added by Discern Expert. Performed By: #### 1 [id number], [id number] #### [facility] [address] [place] [address] Monocytes/100 WBC (Bld) 2.9 % Low 4.0-14.0 [facility] Comment on above: Order Comment: Order Added by Discern Expert. Performed By: #### 1 [id number], [id number] #### [facility] [address] [place] [address] Monocytes/Leukocyte s Auto (Bld) [Pure # fraction] 0.3 E9/L Normal 0.2-1.0 [facility] Comment on above: Order Comment: Order Added by Discern Expert. Performed By: #### 1 [id number], [id number] #### [facility] [address] [place] [address] Neutrophils/100 WBC (Bld) 80.0 % High 36.0-75.0 [facility] Comment on above: Order Comment: Order Added by Discern Expert. Performed By: #### 1 [id number], [id number] #### [facility] [address] [place] [address] Neutrophils/Leukocy esther Auto (Bld) [Pure # fraction] 7.9 E9/L High 2.0-7.5 [facility] Comment on above: Order Comment: Order Added by Discern Expert. Performed By: #### 1 [id number], [id number] #### [facility] [address] [place] [address] CBC w/ Auto Diffon 3 Erythrocyte distribution width (RBC) [Ratio] 13.1 % Normal 10.9-14.2 [facility] Comment on above: Performed By: #### 1 [id number], [id number] #### [facility] [address] [place] [address] Hematocrit (Bld) [Volume fraction] 38.5 % Normal 34.0-46.0 [facility] Comment on above: Performed By: #### 1 [id number], [id number] #### [facility] [address] [place] [address] Hemoglobin (Bld) [Mass/Vol] 13.3 g/dL Normal 12.0-16.0 [facility] Comment on above: Performed By: #### 1 [id number], [id number] #### [facility] [address] [place] [address] MCH (RBC) [Entitic mass] 29.7 pg Normal 27.0-34.0 [facility] Comment on above: Performed By: #### 1 [id number], [id number] #### [facility] [address] [place] [address] MCHC (RBC) [Mass/Vol] 34.5 g/dL Normal 31.4-36.0 [facility] Comment on above: Performed By: #### 1 [id number], [id number] #### [facility] [address] [place] [address] 21782 MCV (RBC) [Entitic vol] 86.2 fL Normal 80.0-100.0 [facility] Comment on above: Performed By: #### 1 [id number], [id number] #### [facility] [address] [place] [address]994 Platelet mean volume (Bld) [Entitic vol] 9.0 fL Normal 6.4-10.8 [facility] Comment on above: Performed By: #### 1 [id number], [id number] #### [facility] [address] [place] [address] Platelets (Bld) [#/Vol] 219.0 E9/L Normal 150.0-500.0 [facility] Comment on above: Performed By: #### 1 [id number], [id number] #### [facility] [address] [place] [address] RBC (Bld) [#/Vol] 4.5 E12/L Normal 4.3-5.9 [facility] Comment on above: Performed By: #### 1 [id number], [id number] #### [facility] [address] [place] [address] WBC corrected for nucl RBC Auto (Bld) [#/Vol] 9.9 E9/L Normal 4.0-11.0 [facility] Comment on above: Performed By: #### 1 [id number], [id number] #### [facility] [address] [place] [address] Consent for Treatmenton 05-10 Consent for Treatment [id number] #1.00CD:127 Normal [facility] [id number] 06-06-2023 HbA1c (Bld) [Mass fraction] 4.9 % Normal <=5.9 [facility] Comment on above: Performed By: #### 1 [id number], [id number] #### [facility] [address] [place] [address] Physician Orderon 06-06-2023 Physician Order [id number] 9#[id number]:127 Normal [facility] Vital Signs Date Time Vital Sign Value Performing Clinician Facility 11-10-2023 14:05-0500 Body height 162.6 cm [facility] 4yr [facility] 11-10-2023 14:05-0500 Body mass index (BMI) [Ratio] 36.96 kg/m2 [facility] 4yr [facility] 11-10-2023 14:05-050 Body weight 97.66 kg [facility] 4yr [facility] 11-10-2023 14:05-0500 Diastolic blood pressure 88 mm[Hg] [facility] 11-10-2023 14:05-0500 Systolic blood pressure 120 mm[Hg] [address] 10-13-2023 12:59-0500 Body height 165.1 cm [facility] 4yr [facility] 10-13-2023 12:59-0500 Body mass index (BMI) [Ratio] 35.74 kg/m2 [facility] 4yr [facility] 10-13-2023 12:59-0500 Body weight 97.43 kg [facility] 4yr [facility] 10-13-2023 12:59-0500 Diastolic blood pressure 70 mm[Hg] [facility] 4yr [facility] 10-13-2023 12:59-0500 Systolic blood pressure 102 mm[Hg] [facility] 4yr [facility] 10-06-2023 09:32-0500 Body height 165.1 cm [facility] Risk [facility] 10-06-2023 09:32-0500 Body mass index (BMI) [Ratio] 35.45 kg/m2 [facility] Risk [facility] 10-06-2023 09:32-0500 Body weight 96.62 kg [facility] 10-06-2023 09:32-0500 Diastolic blood pressure 78 mm[Hg] [facility] Risk [facility] 10-06-2023 09:32-0500 Systolic blood pressure 122 mm[Hg] [facility] 07-12-2023 06:07-0400 Body weight 101.1528 kg Juan Antonio LEMA [facility] Comment on above: Performed By: #### [id number], [id number] ### # [facility] [address] [place] [address] 09-07-2022 14:47-0500 Body mass index (BMI) [Ratio] 38.9 kg/m2 Nancy Cisse MD Work Phone: [facility] 09-07-2022 14:47-0500 Body weight 102.78 kg Nancy Cisse MD Work Phone: [facility] 09-07-2022 14:47-0500 Diastolic blood pressure 103 mm[Hg] Nancy Cisse MD Work Phone: [facility] 09-07-2022 14:47-0500 Heart rate 68 /min Nancy Cisse MD Work Phone: [facility] 09-07-2022 14:47-0500 Systolic blood pressure 149 mm[Hg] Nancy Cisse MD Work Phone: [facility] 04-01-2022 14:57-0400 Body height 162.6 cm Nancy Cisse MD Work Phone: [facility] 04-01-2022 14:57-0400 Body mass index (BMI) [Ratio] 37.25 kg/m2 Nancy Cisse MD Work Phone: [facility] 04-01-2022 14:57-0400 Body weight 98.43 kg Nancy Cisse MD Work Phone: [facility] 04-01-2022 14:57-0400 Diastolic blood pressure 88 mm[Hg] Nancy Cisse MD Work Phone: [facility] 04-01-2022 14:57-0400 Heart rate 61 /min Nancy Cisse MD Work Phone: [facility] 04-01-2022 14:57-0400 Systolic blood pressure 145 mm[Hg] Nancy Cisse MD Work Phone: [facility] 08-24-2021 10:43-0500 Body weight 92.53 kg Kadie Shay RN [facility] 08-24-2021 10:43-0500 Diastolic blood pressure 96 mm[Hg] Kadie Shay RN [facility] 08-24-2021 10:43-0500 Systolic blood pressure 150 mm[Hg] Kadie Shay RN [facility] Encounters Encounter Date Encounter Type Care Provider Facility Start: 05-09-2024 End: 05-09-2024 Emergency department patient visit Kun Uribe [facility] Start: 04-02-2024 End: 04-02-[facility]24 [facility] Start: 12-26-2023 Encounter [facility]W N[facility] Start: 12-23-2023 Encounter [facility]W [facility] Start: 12-19-2023 Encounter [facility]W [facility] Start: 12-18-2023 Encounter [facility]W [facility] Start: 12-12-2023 Encounter [facility]W [facility] Start: 12-10-2023 Encounter [facility]W [facility] Start: 12-08-2023 Encounter [facility]W [facility] Start: 12-03-2023 Encounter [facility]W [facility] Start: 12-01-2023 Encounter [facility] 3W N[facility] Start: 11-29-2023 Encounter [facility]W [facility] Start: 11-28-2023 Encounter [facility]W [facility] Start: 11-21-2023 Encounter [facility]W [facility] Start: 11-17-2023 Encounter [facility]W [facility] Start: 11-16-2023 Encounter [facility]W [facility] Start: 11-10-2023 End: 11-10-2023 Office outpatient visit 15 minutes [facility] Resident [address] [place] [address] Services - Women's Services Comment on above: IUD check up (Primar y Dx) Start: 11-10-2023 End: 11-10-2023 Encounter STEPHANIE MENDOZA [facility] 3W NICU Start: 11-03-2023 Encounter [facility] Start: 10-27-2023 Encounter [facility] Start: 10-19-2023 Encounter [facility]W [facility] Start: 10-17-2023 Encounter [facility] 3W NICU Start: 10-16-2023 Encounter [facility] 3W N[facility] Start: 10-15-2023 Encounter [facility] 3W N[facility] Start: 10-14-2023 Encounter [facility] 3W NICU Start: 10-13-2023 End: 01-05-2024 ambulatory KYAW RAMIREZ [facility] Start: 10-13-2023 End: 10-13-2023 Patient encounter status [facility] 4yr [facility] Start: 10-13-2023 End: 10-13-2023 care visit [facility] Resident 6yr [facility] Women's [facility] Comment on above: Encounter for postpa rtum visit (Primary Dx); Pre-procedure lab exam; Encounter for insertion of intrauterine contraceptive device (IUD) Start: 10-13-2023 End: 10-13-2023 ambulatory [facility] Start: 10-13-2023 Encounter for preprocedural laboratory examination [facility] Start: 10-10-2023 Encounter [facility]W [facility] Start: 10-06-2023 End: 10-06-2023 ambulatory [facility] Start: 10-06-2023 End: 10-06-2023 Office outpatient visit 15 minutes [facility] High Risk [facility] Women[facility] Comment on above: Severe pre-eclampsia in second trimester (Primary Dx); hypertension Start: 10-01-2023 Encounter [facility] 3W N[facility] Start: 09-28-2023 End: 09-28-2023 [facility] Start: 08-19-2023 End: 08-19-2023 ambulatory UNKNOWN PROVIDER Facility:[facility] Start: 07-07-2023 End: 07-07-2023 ambulatory Juan Antonio R PITA Facility:[facility] Start: 06-06-2023 End: 06-06-2023 ambulatory Juan Antonio R PITA Facility:[facility] Start: 05-04-2023 ambulatory EDYTA LUNDBERG [facility] Ambulatory Start: 09-07-2022 End: 09-07-[address] [facility] Start: 09-07-2022 End: 09-07-2022 Patient encounter procedure Nancy Cisse MD Work Phone: [facility] Start: 09-07-2022 End: 09-07-2022 Periodic preventive med est patient 18-39 yrs Nancy Cisse MD Work Phone: [facility] Comment on above: Women's annual routi ne gynecological examination (Primary Dx); Cervical cancer screening; Class 2 obesity due to excess calories without serious comorbidity with body mass index (BMI) of 37.0 to 37.9 in adult Start: 08-12-2022 Orders Only Kadie Shay RN [facility] Start: 04-08-2022 End: 04-12-2022 ambulatory [facility] Start: 04-01-2022 End: 04-01-2022 Office outpatient new 30 minutes Nancy Cisse MD Work Phone: [facility] Comment on above: Abnormal uterine ble eding (Primary Dx); BMI 37.0-37.9, adult; Encounter for preconception consultation Start: 01-16-2022 Chart abstracting Kadie Shay RN [facility] Start: 08-25-2021 End: 08-26-2021 ambulatory [facility] Procedures Date Procedure Procedure Detail Performing Clinician Start: 11-10-2023 Follow-up visit Follow-up STEPHANIE MENDOZA Start: 10-13-2023 Urine test visual color cmprsn allans Kyaw Ramirez MD Work Phone: Start: 10-13-2023 Adult depression scr eening assessment [facility] 4yr Start: 10-06-2023 care Care BOBBY EEN TRAUTWEIN Start: 10-06-2023 Adult depression scr eening assessment [facility] Risk Start: 09-28-2023 Adult depression scr eening assessment Start: 08-24-2021 Microscopic observat ion [Identifier] in Cervix by Cyto stain Kadie Shay RN Plan of Treatment Date Care Activity Detail Author Start: 11-10-2024 Adult BMI Screening Adult BMI Screen ing [facility] Start: 11-10-2024 Tobacco Screening Tobacco Screening [facility] Start: 10-13-2024 Adult BMI Screening Adult BMI Screen ing [facility] Start: 10-13-2024 Depression Screening Depression Scre ening [facility] Start: 10-13-2024 Tobacco Screening Tobacco Screening [facility] Start: 10-06-2024 Adult BMI Screening Adult BMI Screen ing [facility] Start: 10-06-2024 Depression Screening Depression Scre ening [facility] Start: 10-06-2024 Tobacco Screening Tobacco Screening [facility] Start: 09-28-2024 Adult BMI Screening Adult BMI Screen ing [facility] Start: 09-28-2024 Depression Screening Depression Scre ening [facility] Start: 09-28-2024 Tobacco Screening Tobacco Screening [facility] Start: 08-24-2024 Screening for malign ant neoplasm of cervix Pap Smear [facility] Start: 11-10-2023 End: 11-10-2023 Patient encounter procedure 11/10/2023 2:15 PM EST Office Visit [facility] [address] [place] [address] [facility] Start: 10-13-2023 End: 10-13-2023 ambulatory 10/13/2023 1:00 PM EST Visit [facility] [address] [place] [address] [facility] Start: 10-06-2023 End: 10-06-2023 ambulatory 10/06/2023 9:15 AM EST Visit [facility] [address] [place] [address] [facility] Start: 09-08-2023 End: 09-08-2023 Patient encounter procedure 09/08/2023 Office Visit Obstetrics and Gynecology Nancy Cisse MD [address] [place] [address] [place] [address] [facility] Start: 09-07-2023 History and physical examination, annual for health maintenance Wellness Visit [facility] Start: 06-09-2023 Influenza vaccination Influenza Vacc ine [facility] Start: 09-07-2022 End: 09-07-2022 Patient encounter procedure 09/07/2022 Office Visit Obstetrics and Gynecology Nancy Cisse MD [address] [place] [id number] [facility] Start: 08-30-2022 End: 08-30-2022 Patient encounter procedure 08/30/2022 Office Visit Obstetrics and Gynecology Mabel Lau, JANE [address] [facility] [address] [address] [facility] Start: 06-09-2022 Influenza vaccination [facility] Start: 04-08-2022 End: 04-01-2023 Progesterone [Mass/volume] in Serum or Plasma Progesterone Lab Routine Abnormal uterine bleeding Expected: 04/08/2022, Expires: 04/01/2023 [facility] Work Phone: Comment on above: Expected: 04/08/2022 , Expires: 04/01/2023 Start: 2013 Screening for malign ant neoplasm of cervix Pap Smear [facility] Start: 2011 DTaP,Tdap and Td Vaccines (1 - Tdap) DTaP,Tdap and Td Vaccines (1 - Tdap) [facility] Start: 2010 Adult BMI Follow Up Plan Adult BMI Follow Up Plan [facility] Start: 2010 Hepatitis C screening Hepatitis C Sc reening [facility] Start: 2007 HIV screening HIV Screening [facility] Start: 2004 Depression screening using PHQ-9 (Patient Health Questionnaire 9) score Depression Screening (PHQ-2/9) [facility] Start: 1997 COVID-19 Vaccine (#1) COVID-19 Vacci ne (#1) [facility] Start: 1997 COVID-19 Vaccine (1) COVID-19 Vaccin e (1) [facility] Start: 1995 History and physical examination, annual for health maintenance Wellness Visit [facility] Start: 04-07-1993 COVID-19 Vaccine (#1) COVID-19 Vacci ne (#1) [facility] Start: 1992 Tetanus vaccination Tetanus: Every 1 0yrs [facility] End: 10-13-2024 Chlamydia/GC by PCR Rebekah Swab Chlamydia/GC by PCR Rebekah Swab Microbiology Routine Pre-procedure lab exam 1 Occurrences starting 10/13/2023 until 10/13/2024 [facility] Work Phone: Comment on above: 1 Occurrences starti ng 10/13/2023 until 10/13/2024 Chlamydia/GC by PCR Rebekah Swab Chlamydia/GC by PCR Rebekah Swab Microbiology Routine Pre-procedure lab exam 10/13/2023 8:51 PM EST [facility] Payers Date Payer Category Payer Unknown [id number] 2022 Unknown [id number] 2021 Unknown [id number] 2021 Unknown [id number] 1992 Unknown [id number] 2.16. [id number] 1992 Unknown [id number] 2.16. [id number] 1992 Unknown [id number] 2.16. 840.1.298292.3.579.2.903 1992 Unknown [id number] 2.16. 840.1.316193.3.579.2.903 1992 Unknown [id number] 2.16. [id number] 1992 Unknown [id number] 2.16.8 40.1.832685.3.579.2.727 1992 Unknown [id number] 2.16.8 40.1.760852.3.579.2.727 1992 Unknown [id number] 2.16.8 40.1.634316.3.579.2.727 1992 Unknown [id number] 2.16.8 40.1.729016.3.579.2.1286 1992 Unknown [id number] 2.16.8 40.1.157255.3.579.2.1286 1992 Unknown [id number] 2.16.84 0.1.642277.3.579.2.1286 1992 Unknown [id number] 2.16.84 0.1.730620.3.579.2.1286 1992 Unknown [id number] 2.16.84 0.1.474763.3.579.2.1286 1992 Unknown [id number] 2.16.84 0.1.722780.3.579.2.1286 1992 Unknown [id number] 2.16.84 [id number] Social History Date Type Detail Facility Tobacco smoking status [facility] Tobacco smoking consumption unknown [facility] Start: 1990 Sex Assigned At Not on file [facility] Start: 04-01-2022 End: 08-18-2023 Tobacco smoking status [facility] Ex-smoker [facility] End: 10-09-2018 History of tobacco use Cigarette Smoker [facility] Start: 04-01-2022 End: 11-10-2023 Cigarette pack-years [facility] Start: 04-01-2022 End: 08-18-2023 Tobacco use and exposure Smokeless tobacco non-user [facility] Start: 04-01-2022 End: 09-07-2022 Alcohol intake Current drinker of alcohol (finding) [facility] Start: 04-01-2022 History SDOH Alcohol Comment occ [facility] Start: 03-22-2022 End: 09-07-2022 Exposure to SARS-CoV-2 (event) Not sure [facility] End: 10-09-2018 History of tobacco use Current smoker [facility] Start: 09-07-2022 Alcohol Comment Occasionally drink [facility] Start: 09-28-2023 End: 11-10-2023 Alcohol intake Lifetime non-drinker (finding) [facility] Start: 09-28-2023 End: 11-10-2023 Tobacco use panel [facility] The thought of harming myself has occurred to me Never [facility] Within the past 12 months we worried whether our food would run out before we got money to buy more. Never [facility] NEGATED: Highlighted [employer]art: YENIFER History of tobacco use Passive smoker [facility] Clinical Notes 04-01-2022 to 05-09-2024 Note - Dena Gaytan RN - 12/26/2023 12:30 PM EDTLactation Note - Dena Gaytan RN - 12/26/2023 12:30 PM EDTLactation Note - Tram Anderson RN - 12/23/2023 1:32 PM EDT Note Date & Type Note Facility 05-09-2024 Note ED Patient Education Note Orthopedics How to Use a Stirrup Ankle Brace A stirrup ankle brace is used to provide stability to an injured ankle so it can heal. It may be put on after an ankle injury, such as an ankle strain or sprain. It may also be used to treat ankle arthritis by limiting ankle motion. It may also be put on after a cast around the ankle has been removed. A stirrup ankle brace can be worn comfortably inside most athletic shoes. An ankle brace is made of stiff material that fits under the arch of the foot and goes up the sides of the leg. The liner of the brace may be made of a soft gel-like material, or it may be inflatable. The liner lets the brace fit the ankle well without causing pressure on the ankle bones. How to put on a stirrup ankle brace 1. Place the bottom of your foot on the bottom of the brace (stirrup). 2. Pull the brace up against the sides of your ankle. 3. Fasten the straps on the brace or use an elastic wrap to keep the brace in place. 4. Adjust the straps or elastic wrap so that your ankle is snugly supported. The brace should not be loose or too tight. ? If the brace feels too tight or too loose, you should be able to easily adjust it to make it more comfortable. ? Let your health care provider know if you cannot adjust your brace in a way that is comfortable for you. How to wear a stirrup ankle brace ? Wear the brace as told by your health care provider. Remove it only as told by your health care provider. ? Check the skin around the brace every day. Tell your health care provider about any concerns. ? Loosen the brace if your toes tingle, become numb, or turn cold and blue. ? Try not to move your ankle too much, but wiggle your toes from time to time. This helps to prevent swelling. ? Keep your brace clean and dry. ? Do not let it get wet. ? Remove the brace when you shower or bathe. ? If your brace gets dirty, clean it by following the senior structural engineer's instructions. ? Do not wear the brace if it causes pain or swelling. Follow these instructions at home: ? Return to your normal activities as told by your health care provider. Ask your health care provider what activities are safe for you. ? Keep all follow-up visits. Contact a health care provider if: ? You have increased bruising, swelling, or pain. ? Your brace causes pain or swelling. ? You cannot adjust your brace to make it comfortable. Get help right away if: ? Your toes become blue or cold, and this does not get better when you loosen the brace. Summary ? A stirrup ankle brace is used to provide stability to an injured ankle so it can heal. ? A stirrup ankle brace can be worn comfortably inside most athletic shoes. ? Wear the brace as told by your health care provider. Remove it only as told by your health care provider. This information is not intended to replace advice given to you by your health care provider. Make sure you discuss any questions you have with your health care provider. Document Revised: 11/08/2022 Document Reviewed: 11/08/2022 [employer] Patient Education ? 2022 [employer] Ankle Sprain An ankle sprain is a stretch or tear in a ligament in the ankle. Ligaments are tissues that connect bones to each other. The two most common types of ankle sprains are: ? Inversion sprain. This happens when the foot turns inward and the ankle rolls outward. It affects the ligament on the outside of the foot (lateral ligament). ? Eversion sprain. This happens when the foot turns outward and the ankle rolls inward. It affects the ligament on the inner side of the foot (medial ligament). What are the causes? This condition is often caused by accidentally rolling or twisting the ankle. What increases the risk? You are more likely to develop this condition if you play sports. What are the signs or symptoms? Symptoms of this condition include: ? Pain in your ankle. ? Swelling. ? Bruising. This may develop right after you sprain your ankle or 1?2 days later. ? Trouble standing or walking, especially when you turn or change directions. How is this diagnosed? This condition is diagnosed with: ? A physical exam. During the exam, your health care provider will press on certain parts of your foot and ankle and try to move them in certain ways. ? X-ray imaging. These may be taken to see how severe the sprain is and to check for broken bones. How is this treated? This condition may be treated with: ? A brace or splint. This is used to keep the ankle from moving until it heals. ? An elastic bandage. This is used to support the ankle. ? Crutches. ? Pain medicine. ? Surgery. This may be needed if the sprain is severe. ? Physical therapy. This may help to improve the range of motion in the ankle. Follow these instructions at home: If you have a brace or a splint: ? Wear the brace or splin (more content not included)... [facility] 12-26-2023 Miscellaneous Notes This note was copied from a baby's chart. Met with mother at infants bedside. States pumping is going well and supply is stable. No questions or concerns at this time. Outpatient info given. documented in this encounter [facility] 12-26-2023 Obstetrics Note This note was copied from a baby's chart. Met with mother at infants bedside. States pumping is going well and supply is stable. No questions or concerns at this time. Outpatient info given. [facility] 12-23-2023 Miscellaneous Notes This note was copied from a baby's chart. Met with mom at 's bedside. States that pumping is going well with stable supply and denies pain or discomfort. was switched to an AR formula for microaspiration, mom continues to pump to protect supply and freeze for later use. No further questions or concerns, encouraged to call out for any other assistance. Breast Milk Collection and Storage Guidelines Remember to collect and store breast milk in clean containers specifically made for breast milk storage. Room temperature: up to 4 hours Cooler: up to 24 hours Refrigerator: up to 2 days Freezer: up to 6 months Deep Freezer: up to 12 months Breast milk thawed in refrigerator: If you thaw your frozen breast milk in the refrigerator, you can keep it there for up to 24 hours, or at room temperature for up to 2 hours. Once frozen breast milk is thawed, do not refreeze it. Safe Handling for Pumped Breast Milk If you see that your stored breast milk has and there s cream at the top, don t worry - it s normal for this to happen! Just gently swirl warmed bottles to mix the milk layers. You can add small amounts of cooled breast milk to the same refrigerated container during the day. Avoid adding warm milk to already cooled milk. Thaw frozen breast milk overnight in the refrigerator, or hold the bottle under warm running water. Don t use the microwave to heat your breast milk - it can damage the composition of the milk and cause hot spots that could burn your little one s mouth. documented in this encounter [facility] 12-23-2023 Obstetrics Note This note was copied from a baby's chart. Met with mom at 's bedside. States that pumping is going well with stable supply and denies pain or discomfort. was switched to an AR formula for microaspiration, mom continues to pump to protect supply and freeze for later use. No further questions or concerns, encouraged to call out for any other assistance. Breast Milk Collection and Storage Guidelines Remember to collect and store breast milk in clean containers specifically made for breast milk storage. Room temperature: up to 4 hours Cooler: up to 24 hours Refrigerator: up to 2 days Freezer: up to 6 months Deep Freezer: up to 12 months Breast milk thawed in refrigerator: If you thaw your frozen breast milk in the refrigerator, you can keep it there for up to 24 hours, or at room temperature for up to 2 hours. Once frozen breast milk is thawed, do not refreeze it. Safe Handling for Pumped Breast Milk If you see that your stored breast milk has and there s cream at the top, don t worry - it s normal for this to happen! Just gently swirl warmed bottles to mix the milk layers. You can add small amounts of cooled breast milk to the same refrigerated container during the day. Avoid adding warm milk to already cooled milk. Thaw frozen breast milk overnight in the refrigerator, or hold the bottle under warm running water. Don t use the microwave to heat your breast milk - it can damage the composition of the milk and cause hot spots that could burn your little one s mouth. [facility] 12-19-2023 Miscellaneous Notes This note was copied from a baby's chart. Met with mother at infant's bedside. States pumping continues to go well. Supply remains stable. No pain or discomfort with pumping. Parents are working on discharge education to go home on NG feeds. Encouraged to continue to work on latch while in the NICU. No questions or concerns at this time. Support given. documented in this encounter [facility] 12-19-2023 Obstetrics Note This note was copied from a baby's chart. Met with mother at 's bedside. States pumping continues to go well. Supply remains stable. No pain or discomfort with pumping. Parents are working on discharge education to go home on NG feeds. Encouraged to continue to work on latch while in the NICU. No questions or concerns at this time. Support given. [facility] 12-18-2023 Miscellaneous Notes This note was copied from a baby's chart. Met with mother at infants bedside. States pumping is going well and supply is stable. No complaints of pain or discomfort with pumping. Mother concerned about lipase of milk. What is lipase? Lipase is an important enzyme that helps your baby break down breast milk so that they can digest and absorb the essential nutrients contained in it. For people of all ages, lipase works in the intestines to help break down fats. Lipase is naturally found in breast milk, and it s believed that an excess of this enzyme can cause the flavor of breast milk to change. When expressed milk is stored in cool temperatures, it s suspected that high levels of lipase make the fats in your milk break down more quickly, impacting the flavor and smell. Recent research has shown that not all sour-smelling milk results from lipase activity. In fact, in some cases, sour-smelling milk had lower levels of lipase. Check to be sure your breast pump parts and storage containers are clean and dry, decrease your consumption of rancid-smelling fats like fish oils, and ensure that your milk is being refrigerated soon after pumping. After expressing some milk, store it -- following recommended guidelines -- either in the freezer or refrigerator. Let it sit for a day or two and then check the odor. If the milk originally smelled fine when you first pumped and now smells soapy, there s a good chance that you might be producing breast milk with a higher lipase content. What is the effect of high lipase milk? The quick answer is, none. There is no evidence that high lipase milk is bad for your baby or that it will create problems in the future. Why do I have high lipase milk? The true cause of the sour smell and taste isn t necessarily the amount of lipase in your milk, but the rate of lipase activity. How to treat high lipase milk Track your timing The flavor of high lipase milk can change as quickly as 24 hours or over a few days. One option is to test through trial and error exactly how long it takes before the flavor changes. Knowing this, you can still pump and store milk. Adjust the pump According to the text : A Guide for the Medical Professional, some mothers found the smell of their stored milk improved when they lowered the pressure and speed of the breast pump. Mix it with freshly pumped milk or other foods Combining soapy-smelling refrigerated milk with freshly pumped milk can sometimes kelly the flavor again. Milk did not have a different smell to it. Will continue to monitor. documented in this encounter [facility] 12-18-2023 Obstetrics Note This note was copied from a baby's chart. Met with mother at infants bedside. States pumping is going well and supply is stable. No complaints of pain or discomfort with pumping. Mother concerned about lipase of milk. What is lipase? Lipase is an important enzyme that helps your baby break down breast milk so that they can digest and absorb the essential nutrients contained in it. For people of all ages, lipase works in the intestines to help break down fats. Lipase is naturally found in breast milk, and it s believed that an excess of this enzyme can cause the flavor of breast milk to change. When expressed milk is stored in cool temperatures, it s suspected that high levels of lipase make the fats in your milk break down more quickly, impacting the flavor and smell. Recent research has shown that not all sour-smelling milk results from lipase activity. In fact, in some cases, sour-smelling milk had lower levels of lipase. Check to be sure your breast pump parts and storage containers are clean and dry, decrease your consumption of rancid-smelling fats like fish oils, and ensure that your milk is being refrigerated soon after pumping. After expressing some milk, store it -- following recommended guidelines -- either in the freezer or refrigerator. Let it sit for a day or two and then check the odor. If the milk originally smelled fine when you first pumped and now smells soapy, there s a good chance that you might be producing breast milk with a higher lipase content. What is the effect of high lipase milk? The quick answer is, none. There is no evidence that high lipase milk is bad for your baby or that it will create problems in the future. Why do I have high lipase milk? The true cause of the sour smell and taste isn t necessarily the amount of lipase in your milk, but the rate of lipase activity. How to treat high lipase milk Track your timing The flavor of high lipase milk can change as quickly as 24 hours or over a few days. One option is to test through trial and error exactly how long it takes before the flavor changes. Knowing this, you can still pump and store milk. Adjust the pump According to the text : A Guide for the Medical Professional, some mothers found the smell of their stored milk improved when they lowered the pressure and speed of the breast pump. Mix it with freshly pumped milk or other foods Combining soapy-smelling refrigerated milk with freshly pumped milk can sometimes kelly the flavor again. Milk did not have a different smell to it. Will continue to monitor. [facility] 12-12-2023 Miscellaneous Notes This note was copied from a baby's chart. Met with mother at infants bedside. States pumping is going well and supply is stable. No complaints of pain or discomfort. Will call out for assistance as needed, encouragement given. documented in this encounter [facility] 12-12-2023 Obstetrics Note This note was copied from a baby's chart. Met with mother at infants bedside. States pumping is going well and supply is stable. No complaints of pain or discomfort. Will call out for assistance as needed, encouragement given. [facility] 12-10-2023 Miscellaneous Notes This note was copied from a baby's chart. Met with mother at 's bedside. States supply remains stable without any pain or discomfort. She continues to try breast occasionally with feeding cues. States infant latched on briefly earlier today. Denies any pain with latch attempts. Encouraged mother to continue to offer breast based on infant's feeding cues and to reach out if she needs latch assistance. Support given. Infant Feeding Cues: -hands in mouth -smacking lips -rooting -eyes open DEEP LATCH SUGGESTIONS: -position baby at level of the breast, use lots of pillows for support -position baby belly to belly , with ear in line with shoulder and hip -use one hand to support baby at the shoulders to help with head control and keep airway straight and open -point nipple toward nose/roof of baby's mouth -wait for baby to open wide, bring on chin-first for an asymmetrical latch : scoop as much of bottom breast tissue/areola into baby's mouth first, then bring baby up and over to complete a deep latch *if latch becomes uncomfortable or appears shallow, break seal with finger to take baby off, try to latch again [facility] This note was copied from a baby's chart. Met with mother at infant's bedside. States supply remains stable without any pain or discomfort. She continues to try breast occasionally with feeding cues. States latched on briefly earlier today. Denies any pain with latch attempts. Encouraged mother to continue to offer breast based on infant's feeding cues and to reach out if she needs latch assistance. Support given. Infant Feeding Cues: -hands in mouth -smacking lips -rooting -eyes open DEEP LATCH SUGGESTIONS: -position baby at level of the breast, use lots of pillows for support -position baby belly to belly , with ear in line with shoulder and hip -use one hand to support baby at the shoulders to help with head control and keep airway straight and open -point nipple toward nose/roof of baby's mouth -wait for baby to open wide, bring on chin-first for an asymmetrical latch : scoop as much of bottom breast tissue/areola into baby's mouth first, then bring baby up and over to complete a deep latch *if latch becomes uncomfortable or appears shallow, break seal with finger to take baby off, try to latch again [facility] Miscellaneous Notes This note was copied from a baby's chart. Returned for latch assistance per request. Mother able to position infant in cross cradle very well with comfortable positioning and correct hand placement to support both infant's head and her breast. Mom shows correct nipple to nose technique. sleepy at breast, will hold the nipple in his mouth with some nuzzling and mouth movement but no transfer. Offered a teaser bottle to stimulate suck reflex, able to suck, but very weak with loose seal on the nipple. Offered breast after a few sucks on bottle, but tired and uninterested. Reassurance given, encouraged to continue offering breast as is able. This note was copied from a baby's chart. Met with mom at infant's bedside. States that pumping continues to go well with adequate supply and no pain or discomfort with flange fit. States than has been too sleepy for or bottle feeding but that she is interested in trying again as she's able. Encouraged to reach out for latch assistance as shows hunger cues. Feeding Cues: -hands in mouth -smacking lips -rooting -eyes open documented in this encounter [facility] 12-08-2023 Obstetrics Note This note was copied from a baby's chart. Returned for latch assistance per request. Mother able to position infant in cross cradle very well with comfortable positioning and correct hand placement to support both 's head and her breast. Mom shows correct nipple to nose technique. Infant sleepy at breast, will hold the nipple in his mouth with some nuzzling and mouth movement but no transfer. Offered a teaser bottle to stimulate suck reflex, infant able to suck, but very weak with loose seal on the nipple. Offered breast after a few sucks on bottle, but tired and uninterested. Reassurance given, encouraged to continue offering breast as is able. [facility] 12-08-2023 Obstetrics Note This note was copied from a baby's chart. Met with mom at infant's bedside. States that pumping continues to go well with adequate supply and no pain or discomfort with flange fit. States than infant has been too sleepy for or bottle feeding but that she is interested in trying again as she's able. Encouraged to reach out for latch assistance as infant shows hunger cues. Infant Feeding Cues: -hands in mouth -smacking lips -rooting -eyes open [facility] 12-03-2023 Obstetrics Note This note was copied from a baby's chart. Attempted breastfeed at bedside with mother. interested, having lots of licks/nuzzles and the occasional suck, but no successful latch achieved. began showing some stress cues and switched to teaser bottle to comfort . Reassured mother that this was a great first attempt and baby being interested is half the larson. Encouraged to keep offering breast each care time she is able. Skin to skin between feeds, and or non-nutritive during gavage feeds would be ideal as well. Positioned in football and cross cradle. Mother seemed to prefer football. Will attempt laid back next time if interested. Parents interested in weighted feed when is latching better to see how well he is transferring milk from breast. Plan: Offer breast each feed when cues for 5-10 minutes. Feeding Cues: -hands in mouth -smacking lips -rooting -eyes open If after 5-10 minutes has latched allow to continue until satisfied and follow IDF feeding protocol. Educated on how to supplement after goes to breast. Supplementation is based on infants direct time and quality score. Mothers milk supply must also be taken into account. This is per RN discretion. Algorithm Quality Score 1-5, Direct time 0-5 minutes: Gavage all Quality score 1-3, Direct time 6-10 minutes: Gavage 2/3 Quality Score 1-3, Direct time 11-15 minutes: Gavage 1/3 Quality Score 1-3, Direct time 16 minutes or more: No Gavage. If after 5-10 minutes does not latch but infant continues to show feeding cues, offer bottle. If after 5-10 minutes does not latch but does not show the feeding cues for a bottle, start gavage fed and allow infant to have continued access to breast. Positioning Laid-back position Lie back in a chair, with your body on a 45-degree angle. In this position, your chest is a good place for your baby to move around on his or her tummy. Your baby's whole body is supported. He or she can use reflexes to move toward your nipple, find the nipple, and start to nurse. This will be the most comfortable position for both of you. You will have a hand free because your body is holding the baby. Football hold Place a pillow at your side next to the breast you re going to use. Lay your baby on the pillow at breast height so that your baby s bottom is lower than his or her head. Hold your baby's head with your fingers behind the ears at the neck. Use your forearm to support the shoulders and spine. Your baby's body should be facing your body so that you can tuck the baby s legs between your arm and body. Your other hand is used to support your breast. If you re nursing twins, you may eventually be able to use this hold to nurse both babies at once. But each baby will need focused individual attention during feedings at first. Cross-cradle hold or opposite hand hold Put a pillow in your lap, and lay your baby across your lap at breast height. Make sure your baby's bottom is lower than the head on the pillow and that his or her body is facing and touching your body. Support the baby s head and neck with the hand and arm opposite the breast you re using. Hold your baby s head just below the ears, at the nape of the neck. Your other hand will support your breast. Stress Cues: -arching or pulling away from breast or bottle -furrowing brow or wincing -hands and feed are moving around rather than tucked in -eye contact wandering or inconsistent [facility] 12-03-2023 Miscellaneous Notes This note was copied from a baby's chart. Attempted breastfeed at bedside with mother. interested, having lots of licks/nuzzles and the occasional suck, but no successful latch achieved. began showing some stress cues and switched to teaser bottle to comfort . Reassured mother that this was a great first attempt and baby being interested is half the larson. Encouraged to keep offering breast each care time she is able. Skin to skin between feeds, and or non-nutritive during gavage feeds would be ideal as well. Positioned in football and cross cradle. Mother seemed to prefer football. Will attempt laid back next time if interested. Parents interested in weighted feed when infant is latching better to see how well he is transferring milk from breast. Plan: Offer breast each feed when infant cues for 5-10 minutes. Feeding Cues: -hands in mouth -smacking lips -rooting -eyes open If after 5-10 minutes infant has latched allow to continue until satisfied and follow IDF feeding protocol. Educated on how to supplement after goes to breast. Supplementation is based on infants direct time and quality score. Mothers milk supply must also be taken into account. This is per RN discretion. Algorithm Quality Score 1-5, Direct time 0-5 minutes: Gavage all Quality score 1-3, Direct time 6-10 minutes: Gavage 2/3 Quality Score 1-3, Direct time 11-15 minutes: Gavage 1/3 Quality Score 1-3, Direct time 16 minutes or more: No Gavage. If after 5-10 minutes does not latch but infant continues to show feeding cues, offer bottle. If after 5-10 minutes infant does not latch but does not show the feeding cues for a bottle, start gavage fed and allow infant to have continued access to breast. Positioning Laid-back position Lie back in a chair, with your body on a 45-degree angle. In this position, your chest is a good place for your baby to move around on his or her tummy. Your baby's whole body is supported. He or she can use reflexes to move toward your nipple, find the nipple, and start to nurse. This will be the most comfortable position for both of you. You will have a hand free because your body is holding the baby. Football hold Place a pillow at your side next to the breast you re going to use. Lay your baby on the pillow at breast height so that your baby s bottom is lower than his or her head. Hold your baby's head with your fingers behind the ears at the neck. Use your forearm to support the shoulders and spine. Your baby's body should be facing your body so that you can tuck the baby s legs between your arm and body. Your other hand is used to support your breast. If you re nursing twins, you may eventually be able to use this hold to nurse both babies at once. But each baby will need focused individual attention during feedings at first. Cross-cradle hold or opposite hand hold Put a pillow in your lap, and lay your baby across your lap at breast height. Make sure your baby's bottom is lower than the head on the pillow and that his or her body is facing and touching your body. Support the baby s head and neck with the hand and arm opposite the breast you re using. Hold your baby s head just below the ears, at the nape of the neck. Your other hand will support your breast. Stress Cues: -arching or pulling away from breast or bottle -furrowing brow or wincing -hands and feed are moving around rather than tucked in -eye contact wandering or inconsistent [facility] Notes This note was copied from a baby's chart. Met with mother at 's bedside. Supply remains stable without pain. is starting to take more volume by bottle. Mother states she plans to start offering breast at home. Encouraged to try working on latch while in the NICU. Questions answered regarding supplementing after and reviewed weighted feed options at well. Encouraged to reach out to when she would like assistance with latch. Support given. Educated on how to supplement after infant goes to breast. Supplementation is based on infants direct time and quality score. Mothers milk supply must also be taken into account. This is per RN discretion. Algorithm Quality Score 1-5, Direct time 0-5 minutes: Gavage all Quality score 1-3, Direct time 6-10 minutes: Gavage 2/3 Quality Score 1-3, Direct time 11-15 minutes: Gavage 1/3 Quality Score 1-3, Direct time 16 minutes or more: No Gavage. documented in this encounter [facility] 12-01-2023 Obstetrics Note This note was copied from a baby's chart. Met with mother at 's bedside. Supply remains stable without pain. is starting to take more volume by bottle. Mother states she plans to start offering breast at home. Encouraged to try working on latch while in the NICU. Questions answered regarding supplementing after and reviewed weighted feed options at well. Encouraged to reach out to when she would like assistance with latch. Support given. Educated on how to supplement after goes to breast. Supplementation is based on infants direct time and quality score. Mothers milk supply must also be taken into account. This is per RN discretion. Algorithm Quality Score 1-5, Direct time 0-5 minutes: Gavage all Quality score 1-3, Direct time 6-10 minutes: Gavage 2/3 Quality Score 1-3, Direct time 11-15 minutes: Gavage 1/3 Quality Score 1-3, Direct time 16 minutes or more: No Gavage. [facility] 11-29-2023 Obstetrics Note This note was copied from a baby's chart. Met with mother at infants bedside. Reports pumping going well and supply is stable. Denies pain. No questions or concerns at this time. [facility] 11-29-2023 Miscellaneous Notes This note was copied from a baby's chart. Met with mother at infants bedside. Reports pumping going well and supply is stable. Denies pain. No questions or concerns at this time. documented in this encounter [facility] 11-28-2023 Miscellaneous Notes This note was copied from a baby's chart. Met with mom at infants bedside. Mom states supply is stable, producing about 700-800ml in 24hrs. Having no discomfort with pumping. Plans to exclusively pump for now. All questions answered with no concerns. documented in this encounter [facility] 11-28-2023 Obstetrics Note This note was copied from a baby's chart. Met with mom at infants bedside. Mom states supply is stable, producing about 700-800ml in 24hrs. Having no discomfort with pumping. Plans to exclusively pump for now. All questions answered with no concerns. [facility] 11-21-2023 Miscellaneous Notes This note was copied from a baby's chart. Met with mother at 's bedside. States that pumping is going well with stable supply and denies pain or discomfort. No further questions, encouraged to call out for any other assistance. documented in this encounter [facility] 11-21-2023 Obstetrics Note This note was copied from a baby's chart. Met with mother at 's bedside. States that pumping is going well with stable supply and denies pain or discomfort. No further questions, encouraged to call out for any other assistance. [facility] 11-17-2023 Miscellaneous Notes This note was copied from a baby's chart. Met with mother at 's bedside. Milk supply remains stable. Denies any pain or discomfort with pumping. Questions answered about milk donation and mcc milk storage. Denies any other questions or concerns at this time, support given. documented in this encounter [facility] 11-17-2023 Obstetrics Note This note was copied from a baby's chart. Met with mother at infant's bedside. Milk supply remains stable. Denies any pain or discomfort with pumping. 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 Denies any other questions or concerns at this time, support given. [facility] 11-16-2023 Miscellaneous Notes This note was copied from a baby's chart. Met with mother at infant's bedside. Stated she has been pumping every three hours with no changes or concerns. Mother is focusing on pumping at this time. Encouraged to call out to for further support. documented in this encounter [facility] 11-16-2023 Obstetrics Note This note was copied from a baby's chart. Met with mother at infant's bedside. Stated she has been pumping every three hours with no changes or concerns. Mother is focusing on pumping at this time. Encouraged to call out to for further support. [facility] 11-10-2023 History of Presen t illness Narrative Patient is here for a string check No concerns today [facility] Gynecology Visit Chief Complaint: String check History of Present Illness: Ms. Summer Saunders is an 33 y.o. who presents to [facility] on 11/10/2023 for string check. She had a Kyleena IUD placed at her visit on 10/13/23. Since her last visit, she reports no complaints. She has had some spotting here and there, no abnormal discharge or pelvic/abdominal pain. She reports no updates to her past medical, surgical, social and family histories. Allergies, Medications and Problem list were reviewed and updated in [facility]. Current Outpatient Medications on File Prior to Visit Medication Sig Dispense Refill docusate sodium (COLACE) 100 mg capsule Take 1 capsule (100 mg total) by mouth in the morning and 1 capsule (100 mg total) before bedtime. (Patient not taking: Reported on 09/22/2023) 60 capsule 0 ferrous sulfate 325 (65 FE) mg tablet Take 1 tablet (325 mg total) by mouth in the morning and 1 tablet (325 mg total) in the evening. Take with meals. (Patient not taking: Reported on 09/08/2023) 60 tablet 1 hydrALAZINE (APRESOLINE) 25 mg tablet Take 1 tablet (25 mg total) by mouth every 8 (eight) hours. (Patient not taking: Reported on 10/13/2023) 120 tablet 0 ibuprofen (MOTRIN) 800 mg tablet Take 1 tablet (800 mg total) by mouth every 8 (eight) hours. (Patient not taking: Reported on 11/10/2023) 60 tablet 0 levothyroxine (SYNTHROID, LEVOTHROID) 75 MCG tablet Take 1 tablet (75 mcg total) by mouth in the morning. (Patient not taking: Reported on 10/13/2023) 30 tablet 2 NIFEdipine XL (PROCARDIA XL) 60 mg 24 hr tablet Take 1 tablet (60 mg total) by mouth every 12 (twelve) hours. (Patient not taking: Reported on 10/13/2023) 60 tablet 0 no115/iron/folic acid ( 19 ORAL) Take by mouth. (Patient not taking: Reported on 11/10/2023) No current facility-administered medications on file prior to visit. No Known Allergies Review of Systems: Denies fever, chills, chest pain, shortness of breath, abdominal pain Health maintenance: Last pap 06/2023 NILM, neg HPV. Physical Examination BP 120/88 Ht 162.6 cm (5' 4 ) Wt 97.7 kg (215 lb 4.8 oz) LMP (LMP Unknown) Yes BMI 36.96 kg/m General: Healthy, alert, active, cooperative, and in no distress HENT: Moist mucus membranes. Anicteric sclera. Normocephalic. Normal appearing neck. Cardiovascular: No JVD appreciated. Respiratory: Regular respirations without evidence of distress. Skin: Warm, well perfused without evidence of a rash on visible skin. Extremities: No evidence of lower extremity edema. Neurologic: alert, oriented, normal speech, no focal findings or movement disorder noted Psychologic: normal mood, behavior, speech, dress, and thought processes Pelvic: vaginal mucosa within normal limits, cervix wnl, physiologic discharge, string visualized in appropriate position Assessment and Plan: Ms. Summer Saunders is an 33 y.o. who presents for string check. 1. String check -Kyleena IUD inserted 10/13/2023 -String visualized on today's exam -No complaints 2. Return to office in nine months for annual exam Resident Attestation: The patient was seen and discussed with preceptor Dr. Ramirez. Joyce Mojica DO Nurse General Duty Resident, PGY-4 Attending Attestation: I saw the patient. I participated and was physically present during the critical/berry portions of the service. I was directly involved in the management and treatment plan of the patient. I reviewed the resident's note. Additional Notes/Findings: IUD strings seen. Rto annual or sooner, prn. Kyaw Ramirez MD MPH 11/11/2023 5:30 AM documented in this encounter [facility] 11-10-2023 Miscellaneous Notes This note was copied from a baby's chart. Met with mother at 's bedside. Tearful, talked about how baby is being treated for infection and has had to go up on support. Comfort given, discussed effects of stress of milk production and encouraged to call out for any questions or concerns. documented in this encounter [facility] 11-10-2023 Obstetrics Note This note was copied from a baby's chart. Met with mother at infant's bedside. Tearful, talked about how baby is being treated for infection and has had to go up on support. Comfort given, discussed effects of stress of milk production and encouraged to call out for any questions or concerns. [facility] 11-03-2023 Miscellaneous Notes This note was copied from a baby's chart. Met with mother at infant's bedside. Mother states pumping continues to go well and denies any pain or discomfort. Reports supply is stable and denies any questions or concerns at this time. Enc to call out for LC assist with latching or for additional support as needed. Verbalized understanding. documented in this encounter [facility] 11-03-2023 Obstetrics Note This note was copied from a baby's chart. Met with mother at 's bedside. Mother states pumping continues to go well and denies any pain or discomfort. Reports supply is stable and denies any questions or concerns at this time. Enc to call out for LC assist with latching or for additional support as needed. Verbalized understanding. [facility] 10-27-2023 Miscellaneous Notes This note was copied from a baby's chart. Met with mom at 's bedside. States that pumping is going well with stable supply and denies pain or discomfort. Encouraged to reach out for any further assistance. documented in this encounter [facility] 10-27-2023 Obstetrics Note This note was copied from a baby's chart. Met with mom at 's bedside. States that pumping is going well with stable supply and denies pain or discomfort. Encouraged to reach out for any further assistance. [facility] 10-19-2023 Miscellaneous Notes This note was copied from a baby's chart. Met with mother at 's bedside. Stated she is pumping about 600-750mL of breast milk in 24 hour period. Stated she is not emptying as well. Still using size 19mm flange inserts and feels comfortable. Discussed potential for needing smaller due to swelling going down the further she gets from delivery date. Encouraged to try one size smaller or one size larger for several pumping sessions to see if it makes a difference. If experiencing pain or not emptying well then continue with 19mm. Mother does find relief with hand expression after pumping. Mother has been using breast massagers to help with emptying. These provide heat and massage to stimulate breasts. States this helps with areas that feel backed up. Cautioned not to overuse as they can cause further inflammation in the breast. Questions answered and support given. Will call out with further concerns. documented in this encounter [facility] 10-19-2023 Obstetrics Note This note was copied from a baby's chart. Met with mother at infant's bedside. Stated she is pumping about 600-750mL of breast milk in 24 hour period. Stated she is not emptying as well. Still using size 19mm flange inserts and feels comfortable. Discussed potential for needing smaller due to swelling going down the further she gets from delivery date. Encouraged to try one size smaller or one size larger for several pumping sessions to see if it makes a difference. If experiencing pain or not emptying well then continue with 19mm. Mother does find relief with hand expression after pumping. Mother has been using breast massagers to help with emptying. These provide heat and massage to stimulate breasts. States this helps with areas that feel backed up. Cautioned not to overuse as they can cause further inflammation in the breast. Questions answered and support given. Will call out with further concerns. [facility] Miscellaneous Notes This note was copied from a baby's chart. Met with mom at 's bedside. States that pumping is going well with steady supply and no pain or discomfort. Encouraged to call out for any further assistance. documented in this encounter [facility] 10-17-2023 Obstetrics Note This note was copied from a baby's chart. Met with mom at 's bedside. States that pumping is going well with steady supply and no pain or discomfort. Encouraged to call out for any further assistance. [facility] 10-16-2023 Miscellaneous Notes This note was copied from a baby's chart. Met with mother at infants bedside. States pumping is going well and supply is stable. Mother is getting 600-700ml/day. No complaints of pain or discomfort. Encourage NNS at empty breast. Step 2: Non-nutritive will be initiated [id number]-[id number]-Virj will continue Indications Infant tolerates Zrvp-vf-Gydi Infant displays interest/movement to breast (rooting, suckling, licking) 32 weeks gestation Baby should be: Active, alert state Stable with care or during Pdmq-lo-Retg care Mother will: Pump to an empty breast just prior to non-nutritive If becomes too sleepy, revert to Rmmw-wm-Snip Infant placed at breast to smell, lick, suckle and latch as able Will call out for assistance when ready. Mother had questions about after massage. Indicated no studies that indicate it is unsafe. Referred to infant Risk for further questions. Questions answered, encouragement given. documented in this encounter [facility] 10-16-2023 Obstetrics Note This note was copied from a baby's chart. Met with mother at infants bedside. States pumping is going well and supply is stable. Mother is getting 600-700ml/day. No complaints of pain or discomfort. Encourage NNS at empty breast. Step 2: Non-nutritive will be initiated Xpim-ic-Juph will continue Indications tolerates Cxns-wy-Blmy displays interest/movement to breast (rooting, suckling, licking) 32 weeks gestation Baby should be: Active, alert state Stable with care or during Ncyy-xt-Ynjp care Mother will: Pump to an empty breast just prior to non-nutritive If infant becomes too sleepy, revert to Fxet-ow-Mbye placed at breast to smell, lick, suckle and latch as able Will call out for assistance when ready. Mother had questions about after massage. Indicated no studies that indicate it is unsafe. Referred to Risk for further questions. Questions answered, encouragement given. [facility] 10-15-2023 Obstetrics Note This note was copied from a baby's chart. Pumping going well. Every 3-5 hours. Stable supply. Mother states no questions or concerns at this time. Encouraged to reach out to a LC for any future needs. [facility] 10-15-2023 Miscellaneous Notes This note was copied from a baby's chart. Pumping going well. Every 3-5 hours. Stable supply. Mother states no questions or concerns at this time. Encouraged to reach out to a LC for any future needs. documented in this encounter [facility] 10-14-2023 Miscellaneous Notes This note was copied from a baby's chart. Met with mother at 's bedside. Continues to pump with stable supply and denies any pain or discomfort. Encouraged to reach out for any further assistance. documented in this encounter [facility] 10-14-2023 Obstetrics Note This note was copied from a baby's chart. Met with mother at 's bedside. Continues to pump with stable supply and denies any pain or discomfort. Encouraged to reach out for any further assistance. [facility] 10-13-2023 History of Presen t illness Narrative [facility]IC VISIT Summer Saunders is a 33 y.o. who is six weeks s/p PCCS at 26w3d d/t preeclampsia here for visit. Reports doing well. Lochia has resolved. Is pumping. Baby in NICU. Staying at [facility]. Blood pressure log reviewed. Had systolics in low 100's and self discontinued the Procardia on 10/10/23. BP's since have been in low 100's to 110's. Denies sadness, lack of energy, loss of interest. Denies headache, fevers, chills, nausea, vomiting, dizziness, diarrhea, constipation. Contraceptive method is: Desires Kyleena IUD, denies any intercourse since delivery Mood: stable; EPS 5. Feels well-supported at home. Last pap: 06/2023 NILM, neg HPV complicated by: 1. Preeclampsia w/ SF (BP, platelet) -Discharged on Procardia XL 60 mg q12h, hydralazine 25 mg q6h -Last visit 10/06/23 Procardia was continued and hydralazine was discontinued 2. FGR w/ AEDF 3. Hypothyroidism -Started on medication by [facility] as supplement for infertility -Medication stopped 4. GBS bacteruria 5. IUI CURRENT MEDICATIONS: Current Outpatient Medications: ibuprofen (MOTRIN) 800 mg tablet, Take 1 tablet (800 mg total) by mouth every 8 (eight) hours., Disp: 60 tablet, Rfl: 0 no115/iron/folic acid ( 19 ORAL), Take by mouth., Disp: , Rfl: docusate sodium (COLACE) 100 mg capsule, Take 1 capsule (100 mg total) by mouth in the morning and 1 capsule (100 mg total) before bedtime. (Patient not taking: Reported on 09/22/2023), Disp: 60 capsule, Rfl: 0 ferrous sulfate 325 (65 FE) mg tablet, Take 1 tablet (325 mg total) by mouth in the morning and 1 tablet (325 mg total) in the evening. Take with meals. (Patient not taking: Reported on 09/08/2023), Disp: 60 tablet, Rfl: 1 hydrALAZINE (APRESOLINE) 25 mg tablet, Take 1 tablet (25 mg total) by mouth every 8 (eight) hours. (Patient not taking: Reported on 10/13/2023), Disp: 120 tablet, Rfl: 0 levothyroxine (SYNTHROID, LEVOTHROID) 75 MCG tablet, Take 1 tablet (75 mcg total) by mouth in the morning. (Patient not taking: Reported on 10/13/2023), Disp: 30 tablet, Rfl: 2 NIFEdipine XL (PROCARDIA XL) 60 mg 24 hr tablet, Take 1 tablet (60 mg total) by mouth every 12 (twelve) hours. (Patient not taking: Reported on 10/13/2023), Disp: 60 tablet, Rfl: 0 VITALS: BP: (102)/(70) 102/70 Wt Readings from Last 3 Encounters: 10/13/23 97.4 kg (214 lb 12.8 oz) 10/06/23 96.6 kg (213 lb) 09/28/23 96.6 kg (213 lb) PHYSICAL EXAM: Constitutional: She is oriented to person, place, and time and well-developed, well-nourished, and in no distress. Psychiatric: Mood, memory, affect and judgment normal. Neurological: Pleasant and oriented. HENT: Neck normal in appearance. Moist mucus membranes. Anicteric sclera. Normocephalic. Cardiovascular: No JVD. No lower extremity edema. Pulmonary/Chest: Effort normal. No respiratory distress. Skin: Skin is warm and dry. No rash noted. No pallor. Abdomen: soft, non-tender, and non-distended. Incision with two 1 cm areas of erythema without induration, incision intact, does appear moist but no purulent discharge or bleeding Pelvic: External genitalia: normal general appearance Urinary system: urethral meatus normal Vaginal: normal mucosa without prolapse or lesions Cervix: normal appearance ASSESSMENT/PLAN: Summer Saunders is a 33 y.o. who is six weeks s/p PCCS here for visit. 1. care -Lochia resolved -Pumping -Incision with some moisture and erythematous areas but does not appear infected, recommended patient keep area clean and dry -EPDS 5 2. Preeclampsia w/ SF (BP, platelets) -BP log reviewed, lower BP's -Agree with discontinuation of BP meds -No signs or symptoms of preeclampsia 3. Contraception -Kyleena IUD placed today 4. Return to clinic in 4 weeks for string check Resident Attestation: The patient was seen and discussed with preceptor James. Oneida Garcia MD Nurse General Duty Resident, PGY-4 Pt here for 6 week visit and IUD placement States feeling good Pt states ankles are still swelling a lot Has not taken BP meds in the last 4 days On 10/08/2023 pt's systolic 104/78 on day and felt very dizzy BP logs here today Incision clean and sealed - one spot slightly red Discuss which IUD for today [facility] IUD Insertion 10/13/23 2:53 PM Name: Summer Saunders : 1990 Procedure: Kyleena IUD insertion Reason for insertion: contraception Last intercourse: prior to delivery LMP: Patient's last menstrual period was 03/01/2023 (exact date). Urine test: negative IUD Lot#: [id number] IUD Expiration date: Jun 2025 [facility]: 03448-961-24 Risks and benefits including uterine perforation and vasovagal response were discussed. Informed consent obtained: yes Time out occurred: yes Gonorrhea/ Chlamydia: obtained today The speculum was inserted and the cervix was cleansed with betadine sticks x3. The cervix was not grasped with tenaculum. The uterus sounded to 8 cm. The Kyleena IUD was gently inserted withoutdifficulty to 1-2 cm from the fundus. The IUD was then deployed and gently advanced up to the fundus and the applicator was withdrawn. The strings were cut to 3-5 cm. The speculum was removed. The patient tolerated the procedure well. All specimens were labeled and signed out in the room. Kyleena IUD counseling was provided. Kyleena IUD is FDA approved for contraception for five years. She was counseled that decrease in menstrual flow may take up to 6 months to achieve. The patient was counseled to return in 4 weeks for a string check. She was counseled how she or her partner can check for IUD strings at home. he was counseled to return for care if she is having pelvic pain or irregular menses. She understands Kyleena can remain in her uterus for up to 5 years and that it can be removed at any time prior to that if she wishes. She was provided an information card with the lot# and date to remove the IUD. Dr. Ramirez was present for entirety of procedure Oneida Garcia MD Nurse General Duty Resident, PGY-4 Attending Attestation: I saw the patient. I participated and was physically present during the critical/berry portions of the service. I was directly involved in the management and treatment plan of the patient. I reviewed the resident's note. Additional Notes/Findings: I was present and gloved for the entire procedure. The resident and I performed the case. Kyaw Ramirez MD MPH 10/14/2023 12:09 AM documented in this encounter [facility] 10-10-2023 Miscellaneous Notes This note was copied from a baby's chart. Met with mother at infants bedside. States pumping is going well and supply is stable. Mother is able to get 450-650mls every day. No complaints of pain or discomfort. No questions or concerns at this time. Encouragement given. documented in this encounter [facility] 10-10-2023 Obstetrics Note This note was copied from a baby's chart. Met with mother at infants bedside. States pumping is going well and supply is stable. Mother is able to get 450-650mls every day. No complaints of pain or discomfort. No questions or concerns at this time. Encouragement given. [facility] [place] 10-06-2023 History of Presen t illness Narrative CC: Post Op Visit S/p primary classical on 09/02/23 at 26 weeks. Care complicated by preclampsia with severe features, FGR with AEDF, IUI, hypothyroidism. Released home on POD#4 on procardia xl 60 mg every 12 hours, hydralazine 25 mg every 6 hours Last visit 09/28/23 procardia continued Hydralazine decreased to every 8 hours Today report no heavy bleeding Denies headache, visual change, RUQ/Upper abdominal pain BP Log 104-117/60-70s Hypothyroidism--started on medication by SIRI States was in upper limits of normal range EPDS: 6 feeding: breastpumping is in NICU BCM: IUD at 6 week visit PE BP 122/78 Ht 165.1 cm (5' 5 ) Wt 96.6 kg (213 lb) LMP 03/01/2023 (Exact Date) Yes Comment: pumping BMI 35.45 kg/m Alert, NAD Abdomen: Soft, NT, nondistended Incision: healing well Lab Results Component Value Date WBC 14.0 (H) 09/08/2023 HGB 10.7 (L) 09/08/2023 HCT 32.2 (L) 09/08/2023 MCV 89 09/08/2023 PLT 349 09/08/2023 Final Pathologic Diagnosis Placenta: Second trimester placenta. Three vessel umbilical cord. Mike-Christiano changes. Lab Results Component Value Date TSH 1.50 09/28/2023 fT4 0.91 COVID Vaccine status: not vaccinated. Vaccine recommended and education provided. Influenza vaccine recommended and education provided. Patient considering TDaP vaccine recommended and education provided. Patient considering Last tetanus Unknown Imp/Plan Post Op , doing well Preeclampsia with severe features Meds: continue nifedipine 60 xl every 12 Hydralazine--discontinue Continue twice daily bp checks and log Preeclampsia warnings discussed PCP: is in [place]--is currently staying at [facility] Will continue us until baby home Not hypothyroid. Started on supplement due to infertility work Stop thyroid meds Repeat 3 months RTC 1 week for bp check with [facility] Pt here for 5WKPP Visit States baby and her are doing well. Baby still in NICU Pt is Breast feeding (pumping) States incision is healing well, no complaints EPDS= 6 Control plans: IUD at 6wkpp documented in this encounter [facility] 10-01-2023 Miscellaneous Notes This note was copied from a baby's chart. Met with mother at infant's bedside. States her supply is stable at about 18-22oz/day. She has slight soreness, but no pain. Nipple cream and gel pads encouraged for soreness. Infant's father doing skin to skin during visit. Encouraged to reach out with any questions. Support given. documented in this encounter [facility] 10-01-2023 Obstetrics Note This note was copied from a baby's chart. Met with mother at infant's bedside. States her supply is stable at about 18-22oz/day. She has slight soreness, but no pain. Nipple cream and gel pads encouraged for soreness. 's father doing skin to skin during visit. Encouraged to reach out with any questions. Support given. [facility] 09-07-2022 History of Presen t illness Narrative ANNUAL EXAM Patient Name: Summer Saunders : 1990 MR #: [id number] SUBJECTIVE: Summer Saunders is a 31 y.o. here for an annual exam today. Patient has been trying to conceive. Patient states that her had a semen analysis that showed no live sperm. Patient's is trying to get into urology. Patient is currently taking a daily vitamin. Menses are regular. Discussed options to help with weight loss today. Recommended the patient consider contacting her PCP as they can prescribe medications to help with weight loss. Discussed and taught self breast exams. Patient did have the Gardasil vaccine at the age of 20. Discussed diet and exercise. Recommend screening mammogram at the age of 40. Patient will be 32 in 1 month. Plan to do Pap smear with HPV testing next year at patient's annual exam. Follow-up in 1 year or as needed. Her last pap was approximate date 2020 and was normal. She is not currently using contraception. She uses no method. She is currently sexually active. Denies sexual abuse. Denies physical abuse. Denies mental abuse. Review of Systems Review of Systems Constitutional: Negative for chills, fatigue, fever and unexpected weight change. Respiratory: Negative for cough and shortness of breath. Cardiovascular: Negative for chest pain. Gastrointestinal: Negative for abdominal pain, constipation, diarrhea, nausea and vomiting. Genitourinary: Negative for dyspareunia, menstrual problem, pelvic pain, urgency, vaginal discharge and vaginal pain. Neurological: Negative for dizziness. 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 Denies a history of abnormal cervical cytology Past Medical History Past Medical History: Diagnosis Date Migraine 5th grade Varicella Kidergarden Past Surgical History has a past surgical history that includes Arpin tooth extraction. Family History Her family history includes Cancer in her paternal grandmother. Medications She has a current medication list which includes the following prescription(s): sumatriptan. Allergies She has No Known Allergies. Social History She reports that she quit smoking about 3 years ago. Her smoking use included cigarettes. She has a 2.00 pack-year smoking history. She has never used smokeless tobacco. She reports current alcohol use. She reports that she does not use drugs. Counseling given: Not Answered reports that she quit smoking about 3 years ago. Her smoking use included cigarettes. She has a 2.00 pack-year smoking history. She has never used smokeless tobacco. Health maintenance: Mammogram: N/A, recommend at the age of 40 Colonoscopy: N/A, recommend at the age of 45 Dexa: N/A, recommend at the age of 65 Lipid screening: Follows with PCP OBJECTIVE: Body mass index is 38.9 kg/m . Vitals: 09/07/22 1447 BP: (!) 149/103 Pulse: 68 Weight: 102.8 kg (226 lb 9.6 oz) Physical Examination: Physical Exam Constitutional: General: She is not in acute distress. Appearance: Normal appearance. She is obese. She is not ill-appearing. HENT: Head: Normocephalic. Nose: Nose normal. Eyes: Extraocular Movements: Extraocular movements intact. Cardiovascular: Rate and Rhythm: Normal rate and regular rhythm. Heart sounds: No murmur heard. Pulmonary: Effort: Pulmonary effort is normal. No respiratory distress. Breath sounds: Normal breath sounds. No wheezing or rhonchi. Chest: Breasts: Right: Normal. No swelling, bleeding, inverted nipple, mass, nipple discharge, skin change or tenderness. Left: Normal. No swelling, bleeding, inverted nipple, mass, nipple discharge, skin change or tenderness. Abdominal: General: There is no distension. Palpations: Abdomen is soft. There is no mass. Tenderness: There is no abdominal tenderness. There is no guarding or rebound. Genitourinary: General: Normal vulva. Labia: Right: No lesion. Left: No lesion. Vagina: Normal. No vaginal discharge, bleeding or lesions. Cervix: No cervical motion tenderness or discharge. Uterus: Normal. Not tender. Adnexa: Right adnexa normal and left adnexa normal. Right: No mass, tenderness or fullness. Left: No mass, tenderness or fullness. Musculoskeletal: Cervical back: Normal range of motion. Lymphadenopathy: Cervical: No cervical adenopathy. Neurological: Mental Status: She is alert and oriented to person, place, and time. Psychiatric: Mood and Affect: Mood normal. ASSESSMENT/PLAN: Summer Saunders 31 y.o. presents for her annual exam today. Annual Exam - Pap smear last performed in 2020 and was normal. Plan to repeat a Pap smear next year once patient turns 32. Plan to do HPV with patient's next Pap smear. Discussed Pap smear screening guidelines and HPV testing - Reviewed diet and exercise recommendations - Discussed recommendations on breast self-awareness Discussed Pap smear screening guidelines and HPV testing Discussed Gardasil vaccine and recommended Gardasil vaccine up until the age of 45 Discussed and recommended screening mammogram starting at the age of 40 and every year thereafter Discussed and recommended at least 30 minutes 3-5 times per week of cardiovascular exercise Discussed and taught self breast exams Recommended daily multivitamin or at least 1200 mg of calcium and 800 mg of vitamin D daily Recommended screening colonoscopy at the age of 45 Follow-up in 1 year or as needed Patient is currently trying to conceive Patient's had a semen analysis that showed no forward swimmers, no motility, and no live sperm Patient's is trying to get in with urology for further evaluation Goals None - RTO for next annual exam or sooner as needed documented in this encounter [facility] 04-01-2022 History of Presen t illness Narrative Subjective Summer Saunders is a 31 y.o. female G0, new patient, who presents for evaluation of infertility. Patient and partner have been attempting conception for 7 months. Marital status: has been for 10 months. Pregnancies with current partner: no. Menstrual and Endocrine History LMP Patient's last menstrual period was 03/21/2022. Menarche 14 Shortest interval 23 Longest interval 27 days Duration of flow 5 days Heavy menses no Clots no Intermenstrual bleeding no Postcoital bleeding no Dysmenorrhea no Amenorrhea not applicable Weight change no Hirsutism no Balding no Acne no Galactorrhea no Obstetrical History Never Gynecologic History Last PAP 08/24/2021 Previous abdominal or pelvic surgery no Pelvic pain no Endometriosis no Hot flashes no LULÚ exposure no Abnormal Pap no Cervix Cryo/cone no Sexually transmitted diseases no Pelvic inflammatory disease no Infertility and Endocrine Studies Basal body temperature no Endo with biopsy no Hysterosalpingogram no Post-coital test no Laparoscopy no Hormonal studies no Semen analysis no Other studies no Medications none Other therapies Not applicable Insemination not applicable Sexual History Frequency 3 times per week Satisfied Did not discuss Dyspareunia no Use of lubricant no Douching no Number of lifetime sex partners Did not ask Contraception IUD: Past: yes Family History Thyroid problems no Heart condition or high blood pressure no Blood clot or stroke no Diabetes no Cancer no defects/inherited diseases no Infectious diseases (mumps, TB, rubella) no Other medical problems no Habits Cigarettes: - no - no Alcohol: - no - no Marijuana: - no - no The following portions of the patient's history were reviewed and updated as appropriate: allergies, current medications, past family history, past medical history, past social history, past surgical history, and problem list. Review of Systems Constitutional: negative for chills, fatigue, and fevers Respiratory: negative for cough and dyspnea on exertion Cardiovascular: negative for chest pain and dyspnea Gastrointestinal: negative for constipation, diarrhea, nausea, and vomiting Genitourinary:negative for abnormal menstrual periods Objective Female Exam BP (!) 145/88 Pulse 61 Ht 5' 4 Wt 98.4 kg (217 lb) LMP 03/21/2022 BMI 37.25 kg/m Wt Readings from Last 1 Encounters: 04/01/22 98.4 kg (217 lb) BMI: Body mass index is 37.25 kg/m . General appearance: alert, appears stated age, cooperative, and no distress Head: Normocephalic, without obvious abnormality, atraumatic Eyes: conjunctivae/corneas clear. PERRL, EOM's intact. Fundi benign. Assessment: A/P: Patient is a 31-year-old female G0 that presents today as a new patient for evaluation of inability to conceive and infertility Plan: 1. Discussed with patient that with a short menstrual cycle that is every 23-27 days that she is likely ovulating between day 9 and 13 of her menstrual cycle 2. Discussed with patient that any type of vaginal bleeding is considered day number one of her menstrual cycle 3. Discussed with patient that on day one of her cycle she should start counting and on day 7 of her cycle she should start having intercourse 4. Advised patient she should have intercourse every other day until day 21 of her cycle. The purpose of having intercourse every other day is to counteract any kind of sperm abnormality or sperm count issue 5. Advised patient on April 08 she should go to the lab to have a progesterone level drawn 6. Advised patient if progesterone level is over 5 it indicates that she ovulated 7. Advised patient if she does ovulate we wait to see if she conceives 8. Advised patient if we find that she is not ovulating we would discuss starting Clomid 9. Advised patient she is more likely to conceive if she has intercourse before she ovulates than if she has intercourse the day she ovulates or after 10. Plan to call patient with progesterone level results 14. If patient is unable to conceive after a few months and is ovulating then we will discuss doing an semen analysis 15. Advised patient that it can take up to a year after having IUD removed to conceive. Patient's IUD was removed in July/August of last year. 16. Recommend vitamin Follow up in 6 months or as needed documented in this encounter [facility] Evaluation note Diagnosis Abnormal uterine bleeding- Primary Unspecified disorder of menstruation and other abnormal bleeding from female genital tract BMI 37.0-37.9, adult Encounter for preconception consultation [facility] Diagnosis Women's annual routine gynecological examination- Primary Cervical cancer screening Screening for malignant neoplasm of the cervix Class 2 obesity due to excess calories without serious comorbidity with body mass index (BMI) of 37.0 to 37.9 in adult [facility] Diagnosis Severe pre-eclampsia in second trimester- Primary hypertension [facility] Diagnosis Encounter for visit- Primary Pre-procedure lab exam Pre-procedural laboratory examination Encounter for insertion of intrauterine contraceptive device (IUD) documented in this encounter [facility]* Diagnosis IUD check up- Primary [facility] System[facility]Not on filedocumented in this encounter [facility] SystemInstructionsNot on filedocumented in this encounter [facility] SystemInstructionsNot on filedocumented in this encounter [facility] SystemInstructionsNot on filedocumented in this encounter [facility] Summary Purpose Family History No Family History Records FoundNo Family History Records FoundNo Family History Records FoundNo Family History Records FoundNo Family History Records FoundNo Family History Records Found Advance Directives No Advanced Directives Records FoundDocuments on File Type Date Recorded 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 Advance Directives and Living Will Latest Code Status on File Code Status Date Activated Date Inactivated Comments Full Code 08/18/2023 11:13 PM 09/06/2023 7:35 PM Additional Source Comments INFORMATION SOURCE (unrecogn ized section and content) DATE CREATED AUTHOR 09/10/2021 [facility] DATE CREATED AUTHOR AUTHOR'S ORGANIZ ATION 04/12/2022 [facility] DATE CREATED AUTHOR AUTHOR'S ORGANIZ ATION 05/04/2023 [facility] DATE CREATED AUTHOR AUTHOR'S ORGANIZ ATION 08/26/2023 [facility] DATE CREATED AUTHOR AUTHOR'S ORGANIZ ATION [facility]20[facility] DATE CREATED AUTHOR AUTHOR'S ORGANIZ ATION 06/29/2024 [facility] Reason for Visit (unrecogniz ed section and content) Reason Comments trying to conceive x 7 months Reason Comments Annual Exam Annual exam-last pap 08-24-21 neg Reason Comments Care Reason Comments Care Procedure Reason Comments Follow-up Care Teams (unrecognized sec tion and content) Supervisor Grinding Relationship Specialty Start Date End Date No, Physician [facility] PCP - General 04/01/22 Supervisor Grinding Relationship Specialty Start Date End Date Edyta Villalba MD [address] [id number] PCP - General Family Medicine 04/08/22 Supervisor Grinding Relationship Specialty Start Date End Date Edyta Villalba MD [address] [place] [phone] PCP - General Family Medicine 04/08/22 FOR RECORDS PERTAINING TO PATIENTS WHO ARE OR HAVE BEEN ENROLLED IN A CHEMICAL DEPENDENCY/SUBSTANCEABUSE PROGRAM, SOME INFORMATION MAY BE OMITTED. This clinical summary was aggregated from multiple sources. Caution should be exercised in using it in the provision of clinical care. This summary normalizes information from multiple sources, and as a consequence, information in this document may materially change the coding, format and clinical context of patient data. In addition, data may be omitted in some cases. CLINICAL DECISIONS SHOULD BE BASED ON THE PRIMARY CLINICAL RECORDS. [facility] [employer] provides no warranty or guarantee of the accuracy or completeness of information in this document.
[2024-11-06 10:08] LABS: Age Gdln ACOG Testing Note (.); HPV Aptima Negative (Negative); IGP, Aptima HPV, rfx 16/18,45 Note (.)
== END 2024-10-31 18:52 | disposition home or self-care (01) ==
LOC: LAB 18:51
PROVIDERS: Visit Provider Physician Assistant
DX: Z01.419 Encounter for gynecological examination (general) (routine) without abnormal findings (principal)
CPT/HCPCS: 87624; 88175